=== PATIENT | female | born 1935 | race Caucasian/White ===

== ENCOUNTER 2016-10-29 17:13 | Emergency (ER) | payer MEDICARE ==
[2016-10-29 17:34] VITALS: BP 152/70
[2016-10-29] MEDS ORDERED: Ketorolac 60 MG/2 ML SDV IM ONE (17:46)
--- NOTE | 2016-10-29 17:54 | EDM.PDOC ---
ED UPPER BACK/NECK PAIN/INJURY - General Chief Complaint: Neck Problem Stated Complaint: NECK PAIN/RT EAR Time Seen by Provider: 10/29/16 17:19 Source of Information: Reports: Patient History Limitations: Reports: No limitations - History of Present Illness INITIAL COMMENTS - FREE TEXT/NARRATIVE: Presents reporting a three-day history of neck stiffness and pain with movement and in the range of motion particularly turning to the left. She states that the pain is worse at night and she has had some difficulty sleeping unless she gets in the proper position. She denies any known injury or fall. She has no other symptoms including fever, ear pain, throat pain, headache or visual symptoms. - Related Data Allergies/ADRs: Allergies Allergy/AdvReac Type Severity Reaction Status Date / Time No Known Allergies Allergy Verified 10/29/16 17:33 Home Meds: Home Meds Cyclobenzaprine [Flexeril] 5 mg PO TID PRN 7 Days 10/29/16 [Rx] Levothyroxine [Synthroid] 1 tab PO DAILY 10/29/16 [History] Past Medical History - Past Health History Medical/Surgical History: Denies Medical/Surgical History Endocrine/Metabolic History: Reports: Hypothyroidism - Infectious Disease History Infectious Disease History: Reports: Chicken pox, Measles, Mumps Social & Family History - Family History Family Medical History: Noncontributory - Tobacco Use Smoking Status *Q: Current Every Day Smoker Years of Tobacco use: 40 Packs/Tins Daily: 1 - Caffeine Use Caffeine Use: Reports: None - Recreational Drug Use Recreational Drug Use: No ED ROS GENERAL - Review of Systems Review Of Systems: ROS reveals no pertinent complaints other than HPI. ED EXAM, UPPER BACK/NECK PAIN - Physical Exam Exam: See Below Exam Limited By: No limitations General Appearance: alert, no apparent distress Ears Exam: normal external exam, normal TMs (TM occluded by cerumen Left) Nose Exam: normal inspection Throat/Mouth Exam: Normal inspection, Normal oropharynx Head Exam: atraumatic, normocephalic Neck Exam: non-tender, full range of motion (but limited by pain particularly to the left), normal alignment (holds head in erect position and moves entire body rather than her neck), normal inspection, painful range of motion, stiff neck. No: paraspinous muscle tender, spinous processes tender, tenderness, tender lateral, tender midline Cardiovascular/Respiratory: regular rate, rhythm, normal breath sounds, no respiratory distress GI/Abdominal: soft Extremities: normal inspection Neurologic: no motor/sensory deficits, alert, oriented x 3 Psychiatric: normal affect, normal mood Skin Exam: Normal color, Warm/dry, Other (no rash on the neck, back of head, upper back, shoulders, face) Lymphatic: no adenopathy Course - Vital Signs Last Recorded V/S: Last Vital Signs Temp 36.7 C 10/29/16 17:31 Pulse 80 10/29/16 17:31 Resp 18 10/29/16 17:31 BP 152/70 H 10/29/16 17:31 Pulse Ox 95 10/29/16 17:31 - Orders/Labs/Meds Orders: Active Orders 24 hr Category Date Time Status Ketorolac [Toradol] Med 10/29/16 17:46 Once 60 mg IM ONETIME ONE Departure - Departure Time of Disposition: 18:05 Disposition: Home, Self-Care 01 Condition: good Clinical Impression: Muscle spasm Forms: ED Department Discharge Additional Instructions: 1. Diclofenac every 8 hours as needed for pain 2. Flexeril (Cyclobenzaprine) every 8 hours as needed for muscle spasm 3. Warm packs to neck 20 minutes every 3-4 hours taking care to avoid araujo 4. Follow up in primary care 5. Return for fever, visual symptoms, rashes, ear pain. - My Orders Last 24 Hours: My Active Orders 10/29/16 17:46 Ketorolac [Toradol] 60 mg IM ONETIME ONE - Assessment/Plan Last 24 Hours: My Active Orders 10/29/16 17:46 Ketorolac [Toradol] 60 mg IM ONETIME ONE
[2016-10-29] MEDS ORDERED: Ketorolac 30 MG/ML SDV IM ONE (17:56)
== END 2016-10-29 18:38 | disposition home or self-care (01) ==
LOC: MW.ED 17:13
DX: M62.838 Other muscle spasm (principal); M54.2 Cervicalgia; E03.9 Hypothyroidism, unspecified; F17.210 Nicotine dependence, cigarettes, uncomplicated; Z79.899 Other long term (current) drug therapy
CPT/HCPCS: 96372; 99283; J1885

== ENCOUNTER 2019-10-25 13:59 | Emergency (ER) | payer MEDICARE ==
[2019-10-25 14:46] LABS: BLOOD UREA NITROGEN,BUN 11 mg/dL (7.0-18.0); CARBON DIOXIDE,CO2 28.6 mmol/L (21.0-32.0); CHLORIDE,CL 99 mmol/L (98-107); GLUCOSE RANDOM 110 mg/dL (74-106); POTASSIUM,K 3.8 mmol/L (3.5-5.1); SODIUM,NA 137 mmol/L (136-145)
--- NOTE | 2019-10-25 14:51 | CR ---
Chest: 2 views of the chest were obtained. Comparison: Prior chest x-ray of 08/13/13. Heart size is normal. Tortuous thoracic aorta is seen. Lungs are clear with no acute parenchymal change. Lungs are hyperinflated compatible with emphysematous change. Bony structures are osteopenic but appear to be intact. Impression: 1. Emphysematous change. 2. Nothing acute is identified on 2 view chest x-ray. Diagnostic code #2 This report was dictated in [place] Standard Time
[2019-10-25 15:30] VITALS: BP 139/62
[2019-10-25] MEDS ORDERED: Iopamidol 755 MG/ML 200 ML Multipack Bottle IVPUSH ONE (17:41)
--- NOTE | 2019-10-25 18:09 | CT ---
CT chest Technique: Multiple axial sections were obtained from above the lung apices inferiorly through the lung bases. Intravenous contrast was utilized. Study has been performed as a pulmonary angiogram protocol. Findings: Pulmonary arteries are well opacified. No filling defects are seen to indicate pulmonary embolism. Ectatic ascending aorta is noted. No pericardial thickening is seen. Coronary artery calcification is seen. Visualized upper abdominal structures show nothing acute. Emphysematous change is seen throughout both lungs. Mild areas of scarring are noted most prominent within both upper lungs. Bone window settings were reviewed. No acute osseous finding is appreciated. Impression: 1. No findings of pulmonary embolism. 2. Emphysematous change. 3. Nothing acute is appreciated on CT study of the chest. Diagnostic code #2 This report was dictated in [place] Standard Time
--- NOTE | 2019-10-25 18:27 | EDM.PDOC ---
ED [facility] GENERAL MEDICAL PROBLEM - General Chief Complaint: Chest Pain Stated Complaint: CHEST PAINS Time Seen by Provider: 10/25/19 14:01 - History of Present Illness INITIAL COMMENTS - FREE TEXT/NARRATIVE: HPI 84-year-old female former smoker with hypothyroidism presents for evaluation of poorly characterized left-sided chest pain that is been intermittent over 2 weeks. No identifiable provoking or relieving factors. No shortness breath. Pain does not seem to be worsened with ambulation. Triage note: Pt to ed with c/o having chest pain that is on and off for the past two weeks. M/S/F/SocHx notable for: please see HPI; remainder reviewed with patient and in chart. ROS: Negative constitutional, eye, cardiovascular, pulmonary, GI, , MSK, skin , neurologic, psychiatric, endocrine unless noted in the HPI. Exam HR 96, RR 18, BP one 4485, SaO2 95% on room air. Gen: Pleasant, non-toxic appearing, resting comfortably, thin and frail appearing. HEENT: NC, AT, PEERL, EOMI. Resp: Clear to auscultation bilaterally, normal work of breathing. Card: RRR with no M/R/G, no crackles in lung bases, no pedal edema, no JVD appreciated. GI: NT/ND Vascular: Both ankles, calves, and thighs of equal size, no calf tenderness to palpation bilaterally. MSK: No chest wall TTP. No visible deformities, strength and tone WNL. Skin: Normal color with no visible lesions. Neuro: AO x 3, no facial asymmetry, vision and hearing WNL. Psych: Mood and affect appropriate. Labs / Imaging (pertinent): WBC 4.77, Hb 17.4, Na 137, K 3.8, AST 15, ALT 14, total bilirubin 0.6, alkaline phosphatase 108. Troponin (2:16 PM) <0.050, troponin (4:30 PM) <0.050 d-dimer 0.66 EKG: SR at 69 bpm, no MO segment depressions, no new ST segment changes, new LBBB, or T-wave changes that would suggest acute ischemia. CXR: No acute cardiopulmonary disease process. CTA Chest: 1. No findings of pulmonary embolism. 2. Emphysematous change. 3. Nothing acute is appreciated on CT study of the chest. MDM Previous chart, nursing note, and vitals reviewed. A: 84-year-old female with hypothyroidism presents for evaluation of poorly characterized left-sided chest pain that is been intermittent over 2 weeks. DDx and Evaluation: * ACS - doubt ACS given a non-ischemic EKG and negative serial troponins. * UA - unlikely given the atypical history and alternate diagnosis. HEART score 3 (Hx - 0, EKG - 0, age - 2, risk factors - 1, troponin - 0; 30 day MACE: less than or equal to 1.7%). * Pericarditis - consider pericarditis unlikely given the lack of MO segment depressions as well as the absence of diffuse ST-segment elevations, lack of reduction of pain when supine, and lack of a friction rub. * Myocarditis - unlikely given the negative troponin and an EKG without characteristic MO-segment or ST-segment changes. * Dissection - no evidence by imaging.. * PE - no evidence by imaging. * Mediastinal Air - no evidence by imaging. * Pneumothorax - no evidence by imaging. * MSK - doubt given lack of reproducibility on exam. * Endocarditis - no identifiable risk factors, patient afebrile, no new murmurs appreciated on exam; doubt. * GI (Esophageal rupture, GERD) - esophageal rupture effectively excluded given the lack of mediastinal widening, non-toxic appearance, and lack of identifiable risk factors. While not definitively excluded, further evaluation of GERD is deferred to an outpatient setting. ED Course: Vital signs remained stable and within clinically acceptable limits. Disposition: Discharge with PCP follow up. Return to care precautions given verbally and in writing. Impression: Chest Pain. 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: Musculoskeletal History: Reports: None Neurological History: Reports: None Psychiatric History: Reports: None Endocrine/Metabolic History: Reports: Hypothyroidism Hematologic History: Reports: None Immunologic History: Reports: None Oncologic (Cancer) History: Reports: None Dermatologic History: Reports: None - Infectious Disease History Infectious Disease History: Reports: Chicken Pox, Mumps - Past Surgical History Head Surgeries/Procedures: Reports: None HEENT Surgical History: Reports: None Cardiovascular Surgical History: Reports: None Respiratory Surgical History: Reports: None GI Surgical History: Reports: None Female Surgical History: Reports: None Endocrine Surgical History: Reports: None Neurological Surgical History: Reports: None Musculoskeletal Surgical History: Reports: None Oncologic Surgical History: Reports: None Dermatological Surgical History: Reports: None Social & Family History - Family History Family Medical History: Noncontributory - Tobacco Use Smoking Status *Q: Current Every Day Smoker Years of Tobacco use: 20 Packs/Tins Daily: 0.7 - Caffeine Use Caffeine Use: Reports: Coffee - Recreational Drug Use Recreational Drug Use: No ED ROS GENERAL - Review of Systems Review Of Systems: See Below ED EXAM, GENERAL - Physical Exam Exam: See Below Course - Vital Signs Last Recorded V/S: Last Vital Signs Temp 36.4 C 10/25/19 18:01 Pulse 64 10/25/19 15:28 Resp 18 10/25/19 14:09 BP 139/62 10/25/19 15:28 Pulse Ox 95 10/25/19 15:28 - Orders/Labs/Meds Orders: Active Orders 24 hr Category Date Time Status Communication Order [RC] STAT Care 10/25/19 17:29 Active EKG 12 Lead [EKG Documentation Completion] [RC] STAT Care 10/25/19 14:08 Active Labs: Laboratory Tests 10/25/19 10/25/19 10/25/19 Range/Units 14:16 14:16 14:16 WBC 4.77 (4.0-11.0) K/uL RBC 5.41 (4.30-5.90) M/uL Hgb 17.4 H (12.0-16.0) g/dL Hct 53.5 H (36.0-46.0) % MCV 98.9 H (80.0-98.0) fL MCH 32.2 H (27.0-32.0) pg MCHC 32.5 (31.0-37.0) g/dL RDW Std Deviation 49.1 (28.0-62.0) fl RDW Coeff of Saulo 14 (11.0-15.0) % Plt Count 195 (150-400) K/uL MPV 9.10 (7.40-12.00) fL Add Manual Diff YES Neutrophils % (Manual) 54 (48.0-80.0) % Lymphocytes % (Manual) 37 (16.0-40.0) % Monocytes % (Manual) 7 (0.0-15.0) % Eosinophils % (Manual) 1 (0.0-7.0) % Basophils % (Manual) 1 (0.0-1.5) % Absolute Seg Neuts 2.6 (1.4-5.7) Lymphocytes # (Manual) 1.8 (0.6-2.4) Monocytes # (Manual) 0.3 (0.0-0.8) Eosinophils # (Manual) 0.0 (0.0-0.7) Basophils # (Manual) 0.0 (0.0-0.1) Reactive Lymphocytes FEW D-Dimer, Quantitative 0.66 H (0.0-0.50) mg/L FEU Sodium 137 (136-145) mmol/L Potassium 3.8 (3.5-5.1) mmol/L Chloride 99 (98-107) mmol/L Carbon Dioxide 28.6 (21.0-32.0) mmol/L BUN 11 (7.0-18.0) mg/dL Creatinine 0.9 (0.6-1.0) mg/dL Est Cr Clr Drug Dosing 32.49 mL/min Estimated GFR (MDRD) 59.8 ml/min Glucose 110 H (74-106) mg/dL Calcium 9.5 (8.5-10.1) mg/dL Total Bilirubin 0.6 (0.2-1.0) mg/dL AST 15 (15-37) IU/L ALT 14 (14-63) IU/L Alkaline Phosphatase 108 (46-116) U/L Troponin I < 0.050 (0.000-0.056) ng/mL Total Protein 7.8 (6.4-8.2) g/dL Albumin 3.9 (3.4-5.0) g/dL Globulin 3.9 (2.6-4.0) g/dL Albumin/Globulin Ratio 1.0 (0.9-1.6) 03/09/20 Range/Units 16:30 WBC (4.0-11.0) K/uL RBC (4.30-5.90) M/uL Hgb (12.0-16.0) g/dL Hct (36.0-46.0) % MCV (80.0-98.0) fL MCH (27.0-32.0) pg MCHC (31.0-37.0) g/dL RDW Std Deviation (28.0-62.0) fl RDW Coeff of Saulo (11.0-15.0) % Plt Count (150-400) K/uL MPV (7.40-12.00) fL Add Manual Diff Neutrophils % (Manual) (48.0-80.0) % Lymphocytes % (Manual) (16.0-40.0) % Monocytes % (Manual) (0.0-15.0) % Eosinophils % (Manual) (0.0-7.0) % Basophils % (Manual) (0.0-1.5) % Absolute Seg Neuts (1.4-5.7) Lymphocytes # (Manual) (0.6-2.4) Monocytes # (Manual) (0.0-0.8) Eosinophils # (Manual) (0.0-0.7) Basophils # (Manual) (0.0-0.1) Reactive Lymphocytes D-Dimer, Quantitative (0.0-0.50) mg/L FEU Sodium (136-145) mmol/L Potassium (3.5-5.1) mmol/L Chloride (98-107) mmol/L Carbon Dioxide (21.0-32.0) mmol/L BUN (7.0-18.0) mg/dL Creatinine (0.6-1.0) mg/dL Est Cr Clr Drug Dosing mL/min Estimated GFR (MDRD) ml/min Glucose (74-106) mg/dL Calcium (8.5-10.1) mg/dL Total Bilirubin (0.2-1.0) mg/dL AST (15-37) IU/L ALT (14-63) IU/L Alkaline Phosphatase (46-116) U/L Troponin I < 0.050 (0.000-0.056) ng/mL Total Protein (6.4-8.2) g/dL Albumin (3.4-5.0) g/dL Globulin (2.6-4.0) g/dL Albumin/Globulin Ratio (0.9-1.6) Meds: Medications Discontinued Medications Generic Name Dose Route Start Last Admin Trade Name Latisha PRN Reason Stop Dose Admin Iopamidol 50 ml 10/25/19 17:41 10/25/19 17:41 Isovue Multipack-370 (76%) IVPUSH 10/25/19 17:42 50 ml ONETIME ONE Administration Departure - Departure Time of Disposition: 18:27 Disposition: Home, Self-Care 01 Clinical Impression: Chest pain - Discharge Information Referrals: Pawel Sanchez MD [Primary Care Provider] - Additional Instructions: You were in seen in the [facility] Emergency Department for evaluation of chest pain. Please read and follow all of the instructions below. Please follow up with your primary care physician within 48 hours. When calling for follow-up care, please make the office aware that this follow-up is from your recent emergency room visit. If for any reason you are refused follow-up, please contact the [facility] Emergency Department at and asked to speak to the emergency department charge nurse. Your care today was limited to identifying and treating emergent medical problems only. Many people have subtle differences in their test results that require follow up with their outpatient physician(s) to correctly determine if this represents a normal variation or concerning abnormality with respect to your specific health. The care given to you today was limited to identifying and treating emergent medical problems - you need to request a copy of all of your medical records from today's visit and follow up with your outpatient physician(s) to review both today's visit and your overall health. If you have any new symptoms or if you are at all concerned about your health please return immediately to the emergency department. Prescriptions: If you are uninsured or have financial difficulties with filling your prescription(s), you may consider using a free pharmacy discount service such as [employer] ([place]) or [employer] ([employer] [place]). These services allow you to search for a medication on your phone (or computer) and obtain a coupon that usually has a significant discount from the list cha at a pharmacy. Your physician as well as [facility] does not have a financial relationship with either of these services. You may also wish to speak with your physician to determine if lower cost prescriptions are possible. Obtaining primary care: 1. [facility] provides pediatrics (children), family medicine (children, adults, and some obstetrical care), and internal medicine (adults). Further specialty care is also available. Same day appointments are available. They may be contacted at [phone] and are open Friday through Friday 8 AM to 5 PM. The [facility] are located at [facility], [address] [place] [address]. 2. [facility] offers family medicine, internal medicine, women health, and further specialty care. [facility] may be contacted at [phone]. [facility] is located at [address] [facility] [address]. 3. If you have health insurance, please also contact your insurer for a list of accepting providers under your policy, you may contact these providers for further health care. Occupational health: Work related injuries may consider following up with [facility], . Occupational health services are located at [address] [place] [address] and are open Friday through Friday from 7: 30 am to 5:00 pm. Obstetrical and Gynecological Care: [facility], , Friday through Friday 8 AM to 5 PM. [address] [place] [address]. Eyecare: If you have an eye injury you should follow up with your full charge bookkeeper or with [facility], at [phone] or [phone] , they are located at [address] [place] [address]. Dental Care Pancho Franco DDS. [address] [place], [place]. Ph. [phone] Pablito Franco DDS [place]. [address] Ph[address] Bradley Dos Santos DDS. 10 08/[address] [place] [address], [place], [place]. Ph. [phone] Sanju Varner DDS. [address] [facility] 4 [place]. Ph. [phone] Antonio Mane Maribel DDS PC. [address] [place], [place]. Ph. Toby Kelley DDS. [address] [facility]. Ph. [phone] [facility]. [address] [place], [place]. Ph. [phone] [facility]. [address], [place]. Ph. [phone] [facility] [address] [place] [address]. Ph. [phone] [facility]. [address] [place] [address] [address] [place]. Ph. [facility]. [address] [place], [place]. Ph. [phone] Chest Pain of Unclear Cause You have been seen for chest pain. The cause of your pain is not yet known. You should follow up with your primary care physician in the next day to discuss having a cardiac stress test within 48 hours of today. Your doctor has learned about your medical history, examined you, and checked any tests that were done. Still, it is unclear why you are having pain. The doctor thinks there is only a very small chance that your pain is caused by a life-threatening condition. Later, your primary care doctor might do more tests or check you again. Sometimes chest pain is caused by a dangerous condition, like a heart attack, aorta injury, blood clot in the lung, or collapsed lung. It is unlikely that your pain is caused by a life-threatening condition if: Your chest pain lasts only a few seconds at a time; you are not short of breath, nauseated (sick to your stomach), sweaty, or lightheaded; your pain gets worse when you twist or bend; your pain improves with exercise or hard work. Chest pain is serious. It is VERY IMPORTANT that you follow up with your regular doctor and seek medical attention immediately here or at the nearest Emergency Department if your symptoms become worse or they change. YOU SHOULD SEEK MEDICAL ATTENTION IMMEDIATELY, EITHER HERE OR AT THE NEAREST EMERGENCY DEPARTMENT, IF ANY OF THE FOLLOWING OCCURS: Your pain gets worse. Your pain makes you short of breath, nauseated, or sweaty. Your pain gets worse when you walk, go up stairs, or exert yourself. You feel weak, lightheaded, or faint. It hurts to breathe. Your leg swells. Your symptoms get worse or you have new symptoms or concerns. Sepsis Event Note - Evaluation Sepsis Screening Result: No Definite Risk - Focused Exam Vital Signs: Vital Signs Temp Pulse Resp BP Pulse Ox 10/25/19 18:01 36.4 C 10/25/19 15:28 64 139/62 95 10/25/19 14:09 2.2 C L 96 18 144/85 H 95 Date Exam was Performed: 10/25/19 Time Exam was Performed: 18:26 - My Orders Last 24 Hours: My Active Orders 10/25/19 14:08 EKG 12 Lead [EKG Documentation Completion] [RC] STAT 10/25/19 17:29 Communication Order [RC] STAT - Assessment/Plan Last 24 Hours: My Active Orders 10/25/19 14:08 EKG 12 Lead [EKG Documentation Completion] [RC] STAT 10/25/19 17:29 Communication Order [RC] STAT
[2019-10-25 20:15] VITALS: PULSE 79
== END 2019-10-25 18:52 | disposition home or self-care (01) ==
LOC: MW.ED 13:59
DX: R07.9 Chest pain, unspecified (principal); E03.9 Hypothyroidism, unspecified; Z79.899 Other long term (current) drug therapy; Z87.891 Personal history of nicotine dependence
CPT/HCPCS: 36415; 71046; 71275; 80053; 84484; 85025; 85379; 93005; 99285; Q9967; 99283

== ENCOUNTER 2020-10-06 20:42 | Emergency (ER) | payer MEDICARE ==
[2020-10-06 21:07] VITALS: PULSE 84
--- NOTE | 2020-10-06 22:23 | EDM.PDOC ---
ED HPI GENERAL MEDICAL PROBLEM - General Chief Complaint: Back Pain or Injury Stated Complaint: BACK PAIN Time Seen by Provider: 10/06/20 20:57 - History of Present Illness INITIAL COMMENTS - FREE TEXT/NARRATIVE: HISTORY AND PHYSICAL: History of present illness: This is an 85-year-old female who presents ER today for evaluation of a fall at home. Per patient's son, patient was upstairs when he heard a bang on the ground and synchronous ears and noticed that his mother was on the floor. Mother reports that she did not hit her head and did not have any loss of consciousness. She does complain of neck pain as well as pain to her lower back. Patient denies any other symptomatology. Patient denies any dizziness. Patient reports that she tripped and lost balance. History per the son obtained at 10:30 PM: Son reports that while he was in the basement he heard his mother falsely went upstairs and she was outside the bedroom door. He reports that she was able to stand up with his assistance and walk to the bed and he was able to pick her up and put her into the bed so she can get some rest. He reports while she was in bed she was having pain and discomfort so he called EMS and they transferred her here for evaluation. Review of systems: As per history of present illness and below otherwise all systems reviewed and negative. Past medical history: As per history of present illness and as reviewed below otherwise noncontributory. Surgical history: As per history of present illness and as reviewed below otherwise noncontributory. Social history: No reported history of drug or alcohol abuse. Family history: As per history of present illness and as reviewed below otherwise noncontributory. Physical exam: Constitutional: Patient is oriented to person, place, and time. Appears well- developed and well-nourished. No distress. HEENT: Moist mucous membranes Head: Normocephalic and atraumatic Eyes: Right eye exhibits no discharge. Left eye exhibits no discharge. No scleral icterus Neck: Normal range of motion. No tracheal deviation present. Cardiovascular: Normal rate and regular rhythm. Pulmonary: Effort normal, no respiratory distress. Abdominal: No distention Musculoskeletal: Normal range of motion Neurologic: Alert and oriented to person, place and time. Skin: [place], warm and dry. Psychiatric: Normal mood and affect. Behavior is normal. Judgment and thought content normal. Nursing note and vital signs have been reviewed This patient was seen and evaluated during the 2019 SARS-CoV-2 novel coronavirus pandemic period. Community viral transmission is ongoing at time of this encounter and the emergency department is operating under pandemic response procedures. Patient's ER physical exam is significant for old ecchymosis to her right forehead. According to the son the patient did fall yesterday and there is no record here in the ER of an evaluation. Patient does have tenderness to palpation to her lumbar spine at approximately L3-L4 region. Patient has no C- spine T-spine or L-spine tenderness to palpation. Patient has no left upper or right upper quadrant tenderness to palpation. Patient has no crepitus to palpation to the anterior chest wall. Patient is neurologically intact. Patient does not present with any signs or or symptoms that would be consistent with acute intracranial, intra-abdominal, intrathoracic, or long bone injury. All long bones have been palpated and range of motion been performed and there is no evidence of any acute pathology. Patient with a 3 cm skin tear over the dorsal aspect of her left hand. Diagnostics: CT C-spine: No acute fracture or dislocation CT head: No acute fracture or intracranial hemorrhage, CT L-spine: Acute L2 superior endplate fracture with minimal height loss. Therapeutics: Dermabond applied to 3 cm skin tear over her left hand. Ultram 50 p.o. x1 Toradol 15 mg IM x1 Assessment and plan: 85-year-old female who presents ER today for evaluation of a fall with neck and lower back pain. Patient will get a CT scan of her C-spine head and lumbar spine. CT head and C-spine are negative. Patient does appear to have a compression fracture of L2 that appears to be acute. I have discussed the options with the patient and her son and at this time they do not wish for admission to the hospital. The son reports that he feels that he can care for her at home with her pain and assistance with her ADLs. We will discharge patient home with tramadol for pain and to continue taking her Tylenol and Advil that she has at home. Patient will follow up with her primary care physician early next week for reevaluation of pain management and for further management of her L2 fracture. Reassessment at the time of disposition demonstrates that the patient is in no acute distress. The patient has remained stable throughout the entire ED visit and is without objective evidence for acute process requiring urgent intervention or hospitalization. The patient is stable for discharge, counseling is provided as documented above, discussed symptomatic treatment and specific conditions for return. I have spoken with the patient/caregiver and discussed todays findings, in addition to providing specific details for the plan of care. Questions are answered and there is agreement with the plan. Definitive disposition and diagnosis as appropriate pending reevaluation and review of above. posterior neck Pain Score (Numeric/FACES): 8 L abdomen Pain Score (Numeric/FACES): 8 lower back Pain Score (Numeric/FACES): 8 - Related Data Allergies Allergy/AdvReac Type Severity Reaction Status Date / Time No Known Allergies Allergy Verified 10/06/20 20:56 Home Meds: Home Meds Levothyroxine [Synthroid] 1 tab PO DAILY 10/29/16 [History] traMADol [Ultram] 50 mg PO Q6H PRN #20 tab 10/06/20 [Rx] Past Medical History - Past Health History Medical/Surgical History: Denies Medical/Surgical History HEENT History: Reports: Impaired Vision Cardiovascular History: Reports: None Respiratory History: Reports: None Gastrointestinal History: Reports: None Genitourinary History: Reports: None 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: Musculoskeletal History: Reports: None Neurological History: Reports: None Psychiatric History: Reports: None Endocrine/Metabolic History: Reports: Hypothyroidism Hematologic History: Reports: None Immunologic History: Reports: None Oncologic (Cancer) History: Reports: None Dermatologic History: Reports: None - Infectious Disease History Infectious Disease History: Reports: Chicken Pox, Mumps - Past Surgical History Head Surgeries/Procedures: Reports: None HEENT Surgical History: Reports: None Cardiovascular Surgical History: Reports: None Respiratory Surgical History: Reports: None GI Surgical History: Reports: None Female Surgical History: Reports: None Endocrine Surgical History: Reports: None Neurological Surgical History: Reports: None Musculoskeletal Surgical History: Reports: None Oncologic Surgical History: Reports: None Dermatological Surgical History: Reports: None Social & Family History - Family History Family Medical History: No Pertinent Family History - Caffeine Use Caffeine Use: Reports: Coffee - Recreational Drug Use Recreational Drug Use: No ED ROS GENERAL - Review of Systems Review Of Systems: See Below ED EXAM, GENERAL - Physical Exam Exam: See Below Course - Vital Signs Last Recorded V/S: Last Vital Signs Temp 99.8 F 10/06/20 20:56 Pulse 84 10/06/20 20:56 Resp 16 10/06/20 20:56 BP 122/86 10/06/20 20:56 Pulse Ox 89 L 10/06/20 20:56 - Orders/Labs/Meds Meds: Medications Discontinued Medications Generic Name Dose Route Start Last Admin Trade Name Latisha PRN Reason Stop Dose Admin Ketorolac Tromethamine 15 mg 10/06/20 22:46 Toradol IM 10/06/20 22:47 ONETIME ONE Octyl Cyanoacrylate Confirm 10/06/20 22:43 Dermabond Advance Administered 10/06/20 22:44 Dose 1 applic .ROUTE .STK-MED ONE Tramadol HCl 50 mg 10/06/20 22:45 Ultram PO 10/06/20 22:46 ONETIME ONE Departure - Departure Time of Disposition: 22:50 Disposition: Home, Self-Care 01 Condition: Good Clinical Impression: Fall in elderly patient, Skin tear of left hand without complication Head injury Qualifiers: Encounter type: initial encounter Qualified Code(s): S09.90XA - Unspecified injury of head, initial encounter Fracture of second lumbar vertebra Qualifiers: Encounter type: initial encounter Fracture type: closed - Discharge Information Instructions: Fall Prevention in the Home, Adult, [id number], Head Injury, Adult, [id number], Lumbar Spine Fracture, Laceration Care, Adult, [id number] Referrals: PCP,None [Primary Care Provider] - Forms: ED Department Discharge Additional Instructions: You were seen and evaluated in the ER today secondary to a fall. The CT scan of your head and cervical spine did not reveal any acute pathology. There does appear to be a fracture of your lumbar spine #2 that is likely secondary to the fall. You will be given a prescription for Ultram to assist with your pain. Please continue taking the Tylenol and the ibuprofen or Advil or Naprosyn that you have at home. Please make an appointment to see her family doctor early next week so that he can assist her with long-term management of her pain. Please return to the ER if you find that you are not able to manage her mother at home and appropriate take care of her activities of daily living. The following information is given to patients seen in the emergency department who are being discharged to home. This information is to outline your options for follow-up care. We provide all patients seen in our emergency department with a follow-up referral. The need for follow-up, as well as the timing and circumstances, are variable depending upon the specifics of your emergency department visit. If you don't have a primary care physician on staff, we will provide you with a referral. We always advise you to contact your personal physician following an emergency department visit to inform them of the circumstance of the visit and for follow-up with them and/or the need for any referrals to a consulting specialist. The emergency department will also refer you to a specialist when appropriate. This referral assures that you have the opportunity for follow-up care with a specialist. All of these measure are taken in an effort to provide you with optimal care, which includes your follow-up. Under all circumstances we always encourage you to contact your private physician who remains a resource for coordinating your care. When calling for follow-up care, please make the office aware that this follow-up is from your recent emergency room visit. If for any reason you are refused follow-up, please contact the [facility] Emergency Department at and asked to speak to the emergency department charge nurse. [facility] [address] [place] [address] [address] Sepsis Event Note (ED) - Evaluation Sepsis Screening Result: No Definite Risk - Focused Exam Vital Signs: Vital Signs Temp Pulse Resp BP Pulse Ox 10/06/20 20:56 99.8 F 84 16 122/86 89 L
--- NOTE | 2020-10-06 22:25 | CT ---
INDICATION: Fall with head pain TECHNIQUE: Head CT without contrast. COMPARISON: None FINDINGS: CSF spaces: Within normal limits for age. Brain parenchyma: There are nonspecific low attenuation white matter changes consistent with chronic microvascular disease. No sign of mass, hemorrhage, or midline shift. Skull base and calvarium: The visualized paranasal sinuses and mastoid air cells demonstrate no acute or significant findings. The visualized orbits are grossly unremarkable. No skull fractures. There is intracranial atherosclerosis. Small right frontal scalp contusion. IMPRESSION: 1. No acute hemorrhage or skull fracture. Small right frontal scalp contusion. 2. Nonspecific white matter disease, typical of chronic microvascular disease. Please note that all CT scans at this facility use dose modulation, iterative reconstruction, and/or weight-based dosing when appropriate to reduce radiation dose to as low as reasonably achievable. Dictated by Lisa Souza MD @ Oct 06 2020 10:15PM Signed by Dr. Lisa Souza @ Oct 06 2020 10:23PM
--- NOTE | 2020-10-06 22:27 | CT ---
INDICATION: Fall with neck pain TECHNIQUE: CT cervical spine without contrast. COMPARISON: None FINDINGS: Vertebral alignment: Alignment is normal. Vertebrae: There are no fractures or suspicious bony lesions. Discs and facet joints: There are moderate multilevel degenerative disc and facet changes. Extraspinal findings: Emphysema. IMPRESSION: 1. No sign of acute injury. 2. Multilevel degenerative spondylosis. 3. Emphysema. Please note that all CT scans at this facility use dose modulation, iterative reconstruction, and/or weight-based dosing when appropriate to reduce radiation dose to as low as reasonably achievable. Dictated by Lisa Souza MD @ Oct 06 2020 10:26PM Signed by Dr. Lisa Souza @ Oct 06 2020 10:26PM
--- NOTE | 2020-10-06 22:32 | CT ---
INDICATION: Fall with low back pain TECHNIQUE: CT lumbar spine without contrast. 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 Vertebrae: Osteopenia. Acute L2 superior endplate fracture with minimal height loss. Discs and facet joints: Mild multilevel degenerative disc and facet changes. Extraspinal findings: Severe atrophy of the left kidney. IMPRESSION: Acute L2 superior endplate fracture with minimal height loss. Severe atrophy of the left kidney. Please note that all CT scans at this facility use dose modulation, iterative reconstruction, and/or weight-based dosing when appropriate to reduce radiation dose to as low as reasonably achievable. Dictated by Lisa Souza MD @ Oct 06 2020 10:31PM Signed by Dr. Lisa Souza @ Oct 06 2020 10:31PM
[2020-10-06] MEDS ORDERED: Octyl 2-Cyanoacrylate 1 Tube ONE ×2 (22:43→23:23)
[2020-10-06] MEDS ORDERED: traMADol 50 MG Tab PO ONE (22:45)
[2020-10-06] MEDS ORDERED: Ketorolac 15 MG/ML SDV IM ONE (22:46)
[2020-10-06] MEDS ORDERED: Octyl 2-Cyanoacrylate 1 Tube TOP ONE (23:00)
[2020-10-06 23:25] VITALS: BP 146/82
== END 2020-10-06 23:25 | disposition home or self-care (01) ==
LOC: MW.ED 20:42
DX: S32.029A Unspecified fracture of second lumbar vertebra, initial encounter for closed fracture (principal); S61.412A Laceration without foreign body of left hand, initial encounter; S09.90XA Unspecified injury of head, initial encounter; E03.9 Hypothyroidism, unspecified; Z79.899 Other long term (current) drug therapy; W10.9XXA Fall (on) (from) unspecified stairs and steps, initial encounter; Y92.009 Unspecified place in unspecified non-institutional (private) residence as the place of occurrence of the external cause
CPT/HCPCS: 12002; 70450; 72125; 72131; 96372; 99284; A9270; J1885; 99283

== ENCOUNTER 2020-10-10 13:54 | Inpatient (IN) | payer MEDICARE, OTHER ==
--- NOTE | 2020-10-10 14:41 | EDM.PDOC ---
ED HPI GENERAL MEDICAL PROBLEM - General Chief Complaint: Genitourinary Problem Stated Complaint: FOLLOW UP WITH INJURY Time Seen by Provider: 10/10/20 13:59 Source of Information: Reports: Patient History Limitations: Reports: No Limitations - History of Present Illness INITIAL COMMENTS - FREE TEXT/NARRATIVE: 5-year-old female presents today follow-up mental status. Patient was seen recently and she took a fall and had a lumbar sacral fracture. Patient granddaughter came to town states patient been more confused not knowing when she is making weird statements. Patient also has some smile smelling urine as well as she is not walking or taking care of herself at home. Patient is up no other falls no injuries. generalized Pain Score (Numeric/FACES): 4 - Related Data Allergies Allergy/AdvReac Type Severity Reaction Status Date / Time No Known Allergies Allergy Verified 10/10/20 14:29 Home Meds: Home Meds Levothyroxine [Synthroid] 1 tab PO DAILY 10/29/16 [History] traMADol [Ultram] 50 mg PO Q6H PRN #20 tab 10/06/20 [Rx] Past Medical History - Past Health History Medical/Surgical History: Denies Medical/Surgical History HEENT History: Reports: Impaired Vision Cardiovascular History: Reports: None Respiratory History: Reports: None Gastrointestinal History: Reports: None Genitourinary History: Reports: None 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: Musculoskeletal History: Reports: None Neurological History: Reports: None Psychiatric History: Reports: None Endocrine/Metabolic History: Reports: Hypothyroidism Hematologic History: Reports: None Immunologic History: Reports: None Oncologic (Cancer) History: Reports: None Dermatologic History: Reports: None - Infectious Disease History Infectious Disease History: Reports: Chicken Pox, Mumps - Past Surgical History Head Surgeries/Procedures: Reports: None HEENT Surgical History: Reports: None Cardiovascular Surgical History: Reports: None Respiratory Surgical History: Reports: None GI Surgical History: Reports: None Female Surgical History: Reports: None Endocrine Surgical History: Reports: None Neurological Surgical History: Reports: None Musculoskeletal Surgical History: Reports: None Oncologic Surgical History: Reports: None Dermatological Surgical History: Reports: None Social & Family History - Family History Family Medical History: No Pertinent Family History - Caffeine Use Caffeine Use: Reports: Coffee - Recreational Drug Use Recreational Drug Use: No ED ROS GENERAL - Review of Systems Review Of Systems: Unable To Obtain Reason Not Obtained: AMS - Physical Exam Exam: See Below Exam Limited By: Altered Mental Status General Appearance: Alert, No Apparent Distress Eye Exam: Bilateral Eye: EOMI, PERRL Head Exam: Facial Abrasions Neck: Normal Inspection, Non-Tender Respiratory/Chest: No Respiratory Distress, Lungs Clear Cardiovascular: Normal Peripheral Pulses, Regular Rate, Rhythm GI/Abdominal: Normal Bowel Sounds, Soft, Non-Tender Neuro Exam (Abbreviated): Alert (a & ox2) Extremities: Normal Inspection, Normal Range of Motion Course - Vital Signs Last Recorded V/S: Last Vital Signs Temp 97.2 F 10/10/20 14:25 Pulse 82 10/10/20 14:25 Resp 16 10/10/20 14:25 BP 137/74 10/10/20 14:25 Pulse Ox 92 L 10/10/20 14:25 - Orders/Labs/Meds Orders: Active Orders 24 hr Category Date Time Status Patient Status [ADT] Routine ADT 10/10/20 16:56 Ordered T4 FREE [CHEM] Stat Lab 10/10/20 15:02 Received Labs: Laboratory Tests 10/10/20 10/10/20 10/10/20 Range/Units 15:02 15:02 15:59 WBC 5.29 (4.0-11.0) K/uL RBC 4.85 (4.30-5.90) M/uL Hgb 17.1 H (12.0-16.0) g/dL Hct 50.9 H (36.0-46.0) % MCV 104.9 H (80.0-98.0) fL MCH 35.3 H (27.0-32.0) pg MCHC 33.6 (31.0-37.0) g/dL RDW Std Deviation 57.0 (28.0-62.0) fl RDW Coeff of Saulo 15 (11.0-15.0) % Plt Count 179 (150-400) K/uL MPV 9.70 (7.40-12.00) fL Neut % (Auto) 73.9 (48.0-80.0) % Lymph % (Auto) 13.0 L (16.0-40.0) % Garrett % (Auto) 12.7 (0.0-15.0) % Eos % (Auto) 0.2 (0.0-7.0) % Baso % (Auto) 0.2 (0.0-1.5) % Neut # (Auto) 3.9 (1.4-5.7) K/uL Lymph # (Auto) 0.7 (0.6-2.4) K/uL Garrett # (Auto) 0.7 (0.0-0.8) K/uL Eos # (Auto) 0.0 (0.0-0.7) K/uL Baso # (Auto) 0.0 (0.0-0.1) K/uL Nucleated RBC % 0.0 /100WBC Nucleated RBCs # 0 K/uL Sodium 135 L (136-145) mmol/L Potassium 3.9 (3.5-5.1) mmol/L Chloride 97 L (98-107) mmol/L Carbon Dioxide 27.4 (21.0-32.0) mmol/L BUN 29 H (7.0-18.0) mg/dL Creatinine 0.9 (0.6-1.0) mg/dL Est Cr Clr Drug Dosing TNP Estimated GFR (MDRD) 59.7 ml/min Glucose 110 H (74-106) mg/dL Calcium 9.1 (8.5-10.1) mg/dL Phosphorus 2.8 (2.6-4.7) mg/dL Magnesium 2.4 (1.8-2.4) mg/dL Total Bilirubin 0.8 (0.2-1.0) mg/dL AST 17 (15-37) IU/L ALT 17 (14-63) IU/L Alkaline Phosphatase 75 (46-116) U/L Total Protein 7.4 (6.4-8.2) g/dL Albumin 3.5 (3.4-5.0) g/dL Globulin 3.9 (2.6-4.0) g/dL Albumin/Globulin Ratio 0.9 (0.9-1.6) Lipase 67 L (73-393) U/L Urine Color DARK YELLOW Urine Appearance HAZY Urine pH 6.0 (5.0-8.0) Ur Specific Birdseye >= 1.030 (1.001-1.035) Urine Protein TRACE H (NEGATIVE) mg/dL Urine Glucose (UA) NEGATIVE (NEGATIVE) mg/dL Urine Ketones 15 H (NEGATIVE) mg/dL Urine Occult Blood TRACE-INTACT H (NEGATIVE) Urine Nitrite NEGATIVE (NEGATIVE) Urine Bilirubin MODERATE H (NEGATIVE) Urine Ictotest NEGATIVE Urine Urobilinogen 0.2 (<2.0) EU/dL Ur Leukocyte Esterase NEGATIVE (NEGATIVE) Urine RBC 1-4 (0-2/HPF) Urine WBC 0-3 (0-5/HPF) Ur Epithelial Cells MANY (NONE-FEW) Urine Bacteria 1+ H (NEGATIVE) Influenza Type A RNA (NEGATIVE) Influenza Type B RNA (NEGATIVE) SARS-CoV-2 RNA (BRITTANY) (NEGATIVE) 10/10/20 Range/Units 16:00 WBC (4.0-11.0) K/uL RBC (4.30-5.90) M/uL Hgb (12.0-16.0) g/dL Hct (36.0-46.0) % MCV (80.0-98.0) fL MCH (27.0-32.0) pg MCHC (31.0-37.0) g/dL RDW Std Deviation (28.0-62.0) fl RDW Coeff of Saulo (11.0-15.0) % Plt Count (150-400) K/uL MPV (7.40-12.00) fL Neut % (Auto) (48.0-80.0) % Lymph % (Auto) (16.0-40.0) % Garrett % (Auto) (0.0-15.0) % Eos % (Auto) (0.0-7.0) % Baso % (Auto) (0.0-1.5) % Neut # (Auto) (1.4-5.7) K/uL Lymph # (Auto) (0.6-2.4) K/uL Garrett # (Auto) (0.0-0.8) K/uL Eos # (Auto) (0.0-0.7) K/uL Baso # (Auto) (0.0-0.1) K/uL Nucleated RBC % /100WBC Nucleated RBCs # K/uL Sodium (136-145) mmol/L Potassium (3.5-5.1) mmol/L Chloride (98-107) mmol/L Carbon Dioxide (21.0-32.0) mmol/L BUN (7.0-18.0) mg/dL Creatinine (0.6-1.0) mg/dL Est Cr Clr Drug Dosing Estimated GFR (MDRD) ml/min Glucose (74-106) mg/dL Calcium (8.5-10.1) mg/dL Phosphorus (2.6-4.7) mg/dL Magnesium (1.8-2.4) mg/dL Total Bilirubin (0.2-1.0) mg/dL AST (15-37) IU/L ALT (14-63) IU/L Alkaline Phosphatase (46-116) U/L Total Protein (6.4-8.2) g/dL Albumin (3.4-5.0) g/dL Globulin (2.6-4.0) g/dL Albumin/Globulin Ratio (0.9-1.6) Lipase (73-393) U/L Urine Color Urine Appearance Urine pH (5.0-8.0) Ur Specific Birdseye (1.001-1.035) Urine Protein (NEGATIVE) mg/dL Urine Glucose (UA) (NEGATIVE) mg/dL Urine Ketones (NEGATIVE) mg/dL Urine Occult Blood (NEGATIVE) Urine Nitrite (NEGATIVE) Urine Bilirubin (NEGATIVE) Urine Ictotest Urine Urobilinogen (<2.0) EU/dL Ur Leukocyte Esterase (NEGATIVE) Urine RBC (0-2/HPF) Urine WBC (0-5/HPF) Ur Epithelial Cells (NONE-FEW) Urine Bacteria (NEGATIVE) Influenza Type A RNA NEGATIVE (NEGATIVE) Influenza Type B RNA NEGATIVE (NEGATIVE) SARS-CoV-2 RNA (BRITTANY) NEGATIVE (NEGATIVE) - Re-Assessments/Exams Free Text/Narrative Re-Assessment/Exam: 10/10/20 16:[address] head reviewed UA does not show an infection patient will be admitted for altered mental status and likely placement. Departure - Departure Time of Disposition: 16:57 Disposition: Admitted As Inpatient 66 Condition: Good Clinical Impression: AMS (altered mental status) - Discharge Information *PRESCRIPTION DRUG MONITORING PROGRAM REVIEWED*: Not Applicable *COPY OF PRESCRIPTION DRUG MONITORING REPORT IN PATIENT NELY: Not Applicable Referrals: Pawel Sanchez MD [Primary Care Provider] - Forms: ED Department Discharge Sepsis Event Note (ED) - Evaluation Sepsis Screening Result: No Definite Risk - Focused Exam Vital Signs: Vital Signs Temp Pulse Resp BP Pulse Ox 10/10/20 14:25 97.2 F 82 16 137/74 92 L - My Orders Last 24 Hours: My Active Orders 10/10/20 15:02 T4 FREE [CHEM] Stat 10/10/20 16:56 Patient Status [ADT] Routine - Assessment/Plan Last 24 Hours: My Active Orders 10/10/20 15:02 T4 FREE [CHEM] Stat 10/10/20 16:56 Patient Status [ADT] Routine Plan: Is a 85-year-old female who presents today for altered mental status. Patient had a recent fall that showed a lumbar sacral fracture. Patient today is having some foul-smelling urine and now not acting like herself per her granddaughter will get UA labs and repeat CT scan head and reassess.
[2020-10-10 15:49] LABS: BLOOD UREA NITROGEN,BUN 29 mg/dL (7.0-18.0); CARBON DIOXIDE,CO2 27.4 mmol/L (21.0-32.0); CHLORIDE,CL 97 mmol/L (98-107); GLUCOSE RANDOM 110 mg/dL (74-106); LIPASE 67 U/L (73-393); POTASSIUM,K 3.9 mmol/L (3.5-5.1); SODIUM,NA 135 mmol/L (136-145)
--- NOTE | 2020-10-10 16:18 | CT ---
Indication: Altered mental status post fall Technique: Volumetric multidetector CT images of the head were obtained without the administration of low osmolar intravenous contrast. Comparison: CT head October 06, 2020 Findings: There is no intra-axial or extra-axial fluid collection. There is no mass effect or midline shift. There is age-related cortical atrophy with moderate sulcal widening and moderate ex vacuo dilatation of the lateral ventricles. There are chronic small vessel disease changes in the subcortical and periventricular white matter without lost najera-white differentiation. The orbits and their contents are grossly within normal limits. The bony calvarium is grossly intact. The paranasal sinuses are clear. The mastoid air cells are well aerated. Impression: 1. Age-related changes of the brain without acute intracranial abnormality. Please note that all CT scans at this facility use dose modulation, iterative reconstruction, and/or weight-based dosing when appropriate to reduce radiation dose to as low as reasonably achievable. Dictated by Edvin Ochoa MD @ Oct 10 2020 4:13PM Signed by Dr. Edvin Ochoa @ Oct 10 2020 4:16PM
[2020-10-10 16:49] LABS: CORONAVIRUS COVID-19 NAA NEGATIVE (NEGATIVE); INFLUENZA A NAA NEGATIVE (NEGATIVE); INFLUENZA B NAA NEGATIVE (NEGATIVE)
[2020-10-10] MEDS ORDERED: Ondansetron 4 MG/2 ML SDV IVPUSH PRN (17:54)
--- NOTE | 2020-10-10 17:58 | PCM.HP.2 ---
<Lanre Gatica M - Last Filed: 10/10/20 19:47> H&P History of Present Illness - General Date of Service: 10/10/20 Admit Problem/Dx: Admission Diagnosis/Problem Admission Diagnosis/Problem Altered mental status Source of Information: Family, Other (Granddaughter) - History of Present Illness Initial Comments - Free Text/Narative: 85-year-old female accompanied by her granddaughter presents with altered mental status. She has a past medical history of hypothyroidism. She was seen in the ER on 10/06/2020 after sustaining a mechanical fall at home after tripping on a rug. CT scan showed acute fracture of L2. Patient was discharged home on tramadol. Granddaughter reports that she was visiting her grandmother over the weekend and noted that she seemed more confused than normal. She was also noted to be making weird statements seem to be hallucinating on occasion. She has also had difficulty walking. At baseline, she does not use any assisted devices when walking. Granddaughter also notes that patient has had foul-smelling darker colored urine lately and has had decreased appetite. At her baseline, patient is AOx3. Granddaughter does report that over the past couple of months patient may have had mild cognitive decline and memory impairment, however, has noticed a more significant decline over the past 2 days. Patient lives with her son at home here in [place]. She has not had any fevers, chills, sore throat, cough, shortness of breath, chest pain, nausea, vomiting, abdominal pain, diarrhea, blood in stool or blood in urine. In the ER, CT head was unremarkable, hemoglobin 17.1, TSH 0.26, UA did not show any infection. Patient was admitted for further evaluation and treatment. generalized Pain Score (Numeric/FACES): 4 - Related Data Allergies/Adverse Reactions: Allergies Allergy/AdvReac Type Severity Reaction Status Date / Time No Known Allergies Allergy Verified 10/10/20 14:29 Home Medications: Home Meds Levothyroxine [Synthroid] 1 tab PO DAILY 10/29/16 [History] traMADol [Ultram] 50 mg PO Q6H PRN #20 tab 10/06/20 [Rx] Past Medical History - Past Health History Medical/Surgical History: Denies Medical/Surgical History HEENT History: Reports: Impaired Vision Cardiovascular History: Reports: None Respiratory History: Reports: None Gastrointestinal History: Reports: None Genitourinary History: Reports: None [employer] History: Reports: Musculoskeletal History: Reports: None Neurological History: Reports: None Psychiatric History: Reports: None Endocrine/Metabolic History: Reports: Hypothyroidism Hematologic History: Reports: None Immunologic History: Reports: None Oncologic (Cancer) History: Reports: None Dermatologic History: Reports: None - Infectious Disease History Infectious Disease History: Reports: Chicken Pox, Mumps - Past Surgical History Head Surgeries/Procedures: Reports: None HEENT Surgical History: Reports: None Cardiovascular Surgical History: Reports: None Respiratory Surgical History: Reports: None GI Surgical History: Reports: None Female Surgical History: Reports: None Endocrine Surgical History: Reports: None Neurological Surgical History: Reports: None Musculoskeletal Surgical History: Reports: None Oncologic Surgical History: Reports: None Dermatological Surgical History: Reports: None Social & Family History - Family History Family Medical History: No Pertinent Family History - Caffeine Use Caffeine Use: Reports: Coffee - Recreational Drug Use Recreational Drug Use: No H&P Review of Systems - Review of Systems: Review Of Systems: Comprehensive ROS is negative, except as noted in HPI. Exam - Exam Exam: See Below - Vital Signs Vital Signs: Last Vital Signs Temp 36.2 C 10/10/20 14:25 Pulse 82 10/10/20 14:25 Resp 16 10/10/20 14:25 BP 137/74 10/10/20 14:25 Pulse Ox 92 L 10/10/20 14:25 - Exam General: Alert, Other (Restless). No: Oriented HEENT: Conjunctiva Clear, EOMI, Hearing Intact, Pupils Equal, Pupils Reactive Neck: Supple, Trachea Midline Lungs: Clear to Auscultation, Normal Respiratory Effort Cardiovascular: Regular Rate, Regular Rhythm GI/Abdominal Exam: Normal Bowel Sounds, Soft, Non-Tender, No Distention Extremities: Normal Inspection, No Pedal Edema Peripheral Pulses: 2+: Radial (L), Radial (R) Skin: Other (Ecchymosis over right side of forehead) Neurological: Cranial Nerves Intact, Strength Equal Bilateral, Normal Speech, Normal Tone Neuro Extensive - Mental Status: Alert, Oriented x3, Normal Mood/Affect - Patient Data Lab Results Last 24 hrs: Laboratory Results - last 24 hr 10/10/20 10/10/20 10/10/20 Range/Units 15:02 15:02 15:02 WBC 5.29 (4.0-11.0) K/uL RBC 4.85 (4.30-5.90) M/uL Hgb 17.1 H (12.0-16.0) g/dL Hct 50.9 H (36.0-46.0) % MCV 104.9 H (80.0-98.0) fL MCH 35.3 H (27.0-32.0) pg MCHC 33.6 (31.0-37.0) g/dL RDW Std Deviation 57.0 (28.0-62.0) fl RDW Coeff of Saulo 15 (11.0-15.0) % Plt Count 179 (150-400) K/uL MPV 9.70 (7.40-12.00) fL Neut % (Auto) 73.9 (48.0-80.0) % Lymph % (Auto) 13.0 L (16.0-40.0) % [place] % (Auto) 12.7 (0.0-15.0) % Eos % (Auto) 0.2 (0.0-7.0) % Baso % (Auto) 0.2 (0.0-1.5) % Neut # (Auto) 3.9 (1.4-5.7) K/uL Lymph # (Auto) 0.7 (0.6-2.4) K/uL [place] # (Auto) 0.7 (0.0-0.8) K/uL Eos # (Auto) 0.0 (0.0-0.7) K/uL Baso # (Auto) 0.0 (0.0-0.1) K/uL Nucleated RBC % 0.0 /100WBC Nucleated RBCs # 0 K/uL Sodium 135 L (136-145) mmol/L Potassium 3.9 (3.5-5.1) mmol/L Chloride 97 L (98-107) mmol/L Carbon Dioxide 27.4 (21.0-32.0) mmol/L BUN 29 H (7.0-18.0) mg/dL Creatinine 0.9 (0.6-1.0) mg/dL Est Cr Clr Drug Dosing TNP Estimated GFR (MDRD) 59.7 ml/min Glucose 110 H (74-106) mg/dL Calcium 9.1 (8.5-10.1) mg/dL Phosphorus 2.8 (2.6-4.7) mg/dL Magnesium 2.4 (1.8-2.4) mg/dL Total Bilirubin 0.8 (0.2-1.0) mg/dL AST 17 (15-37) IU/L ALT 17 (14-63) IU/L Alkaline Phosphatase 75 (46-116) U/L Total Protein 7.4 (6.4-8.2) g/dL Albumin 3.5 (3.4-5.0) g/dL Globulin 3.9 (2.6-4.0) g/dL Albumin/Globulin Ratio 0.9 (0.9-1.6) Lipase 67 L (73-393) U/L Free T4 1.48 H (0.76-1.46) ng/dL TSH 3rd Generation (0.36-3.74) uIU/mL Urine Color Urine Appearance Urine pH (5.0-8.0) Ur Specific [place] (1.001-1.035) Urine Protein (NEGATIVE) mg/dL Urine Glucose (UA) (NEGATIVE) mg/dL Urine Ketones (NEGATIVE) mg/dL Urine Occult Blood (NEGATIVE) Urine Nitrite (NEGATIVE) Urine Bilirubin (NEGATIVE) Urine Ictotest Urine Urobilinogen (<2.0) EU/dL Ur Leukocyte Esterase (NEGATIVE) Urine RBC (0-2/HPF) Urine WBC (0-5/HPF) Ur Epithelial Cells (NONE-FEW) Urine Bacteria (NEGATIVE) Influenza Type A RNA (NEGATIVE) Influenza Type B RNA (NEGATIVE) SARS-CoV-2 RNA (BRITTANY) (NEGATIVE) 10/10/20 10/10/20 10/10/20 Range/Units 15:59 16:00 17:28 WBC (4.0-11.0) K/uL RBC (4.30-5.90) M/uL Hgb (12.0-16.0) g/dL Hct (36.0-46.0) % MCV (80.0-98.0) fL MCH (27.0-32.0) pg MCHC (31.0-37.0) g/dL RDW Std Deviation (28.0-62.0) fl RDW Coeff of Saulo (11.0-15.0) % Plt Count (150-400) K/uL MPV (7.40-12.00) fL Neut % (Auto) (48.0-80.0) % Lymph % (Auto) (16.0-40.0) % [place] % (Auto) (0.0-15.0) % Eos % (Auto) (0.0-7.0) % Baso % (Auto) (0.0-1.5) % Neut # (Auto) (1.4-5.7) K/uL Lymph # (Auto) (0.6-2.4) K/uL [place] # (Auto) (0.0-0.8) K/uL Eos # (Auto) (0.0-0.7) K/uL Baso # (Auto) (0.0-0.1) K/uL Nucleated RBC % /100WBC Nucleated RBCs # K/uL Sodium (136-145) mmol/L Potassium (3.5-5.1) mmol/L Chloride (98-107) mmol/L Carbon Dioxide (21.0-32.0) mmol/L BUN (7.0-18.0) mg/dL Creatinine (0.6-1.0) mg/dL Est Cr Clr Drug Dosing Estimated GFR (MDRD) ml/min Glucose (74-106) mg/dL Calcium (8.5-10.1) mg/dL Phosphorus (2.6-4.7) mg/dL Magnesium (1.8-2.4) mg/dL Total Bilirubin (0.2-1.0) mg/dL AST (15-37) IU/L ALT (14-63) IU/L Alkaline Phosphatase (46-116) U/L Total Protein (6.4-8.2) g/dL Albumin (3.4-5.0) g/dL Globulin (2.6-4.0) g/dL Albumin/Globulin Ratio (0.9-1.6) Lipase (73-393) U/L Free T4 (0.76-1.46) ng/dL TSH 3rd Generation 0.26 L (0.36-3.74) uIU/mL Urine Color DARK YELLOW Urine Appearance HAZY Urine pH 6.0 (5.0-8.0) Ur Specific [place] >= 1.030 (1.001-1.035) Urine Protein TRACE H (NEGATIVE) mg/dL Urine Glucose (UA) NEGATIVE (NEGATIVE) mg/dL Urine Ketones 15 H (NEGATIVE) mg/dL Urine Occult Blood TRACE-INTACT H (NEGATIVE) Urine Nitrite NEGATIVE (NEGATIVE) Urine Bilirubin MODERATE H (NEGATIVE) Urine Ictotest NEGATIVE Urine Urobilinogen 0.2 (<2.0) EU/dL Ur Leukocyte Esterase NEGATIVE (NEGATIVE) Urine RBC 1-4 (0-2/HPF) Urine WBC 0-3 (0-5/HPF) Ur Epithelial Cells MANY (NONE-FEW) Urine Bacteria 1+ H (NEGATIVE) Influenza Type A RNA NEGATIVE (NEGATIVE) Influenza Type B RNA NEGATIVE (NEGATIVE) SARS-CoV-2 RNA (BRITTANY) NEGATIVE (NEGATIVE) Result Diagrams: 10/10/20 15:02 10/10/20 15:02 Sepsis Event Note - Evaluation Sepsis Screening Result: No Definite Risk - Focused Exam Vital Signs: Vital Signs Temp Pulse Resp BP Pulse Ox 10/10/20 14:25 36.2 C 82 16 137/74 92 L - Problem List (1) Ambulatory dysfunction SNOMED Code(s): 879098224 ICD Code: R26.2 - DIFFICULTY IN WALKING, NOT ELSEWHERE CLASSIFIED Status: Acute Current Visit: Yes (2) Hypothyroidism SNOMED Code(s): 51477185 ICD Code: E03.9 - HYPOTHYROIDISM, UNSPECIFIED Status: Acute Current Visit: Yes (3) AMS (altered mental status) SNOMED Code(s): 506147987 ICD Code: R41.82 - ALTERED MENTAL STATUS, UNSPECIFIED Status: Acute Current Visit: Yes (4) Fracture of second lumbar vertebra SNOMED Code(s): 568485274, 824328159 ICD Code: S32.029A - UNSP FRACTURE OF SECOND LUMBAR VERTEBRA, INIT FOR CLOS FX Status: Acute Current Visit: No Qualifiers: Encounter type: initial encounter Fracture type: closed Problem List Initiated/Reviewed/Updated: Yes Orders Last 24hrs: Active Orders 24 hr Category Date Time Status Patient Status [ADT] Routine ADT 10/10/20 16:56 Active Oxygen Therapy [RC] PRN Care 10/10/20 17:54 Ordered Up With Assistance [RC] ASDIRECTED Care 10/10/20 17:54 Ordered VTE/DVT Education [RC] PER UNIT ROUTINE Care 10/10/20 17:54 Ordered Vital Signs [RC] Q4H Care 10/10/20 17:54 Ordered PT Evaluation and Treatment [CONS] Routine Cons 10/10/20 17:54 Ordered Regular Diet [DIET] Diet 10/10/20 Dinner Ordered CBC WITH AUTO DIFF [HEME] AM Lab 10/11/20 05:11 Ordered COMPREHENSIVE METABOLIC PN,CMP [CHEM] AM Lab 10/11/20 05:11 Ordered Acetaminophen [TylenoL] Med 10/10/20 17:54 Ordered 650 mg PO Q4H PRN Heparin Sodium Med 10/10/20 18:00 Ordered 5,000 units SUBCUT Q8H Ketorolac [Toradol] Med 10/10/20 17:57 Ordered 15 mg IVPUSH Q6H PRN Ondansetron [Zofran] Med 10/10/20 17:54 Ordered 4 mg IVPUSH Q4H PRN Resuscitation Status Routine Resus Stat 10/10/20 17:54 Ordered Medication Orders Acetaminophen (Tylenol) 650 mg PO Q4H PRN PRN Reason: Pain (Mild 1-3)/fever Heparin Sodium (Porcine) (Heparin Sodium) 5,000 units SUBCUT Q8H SUSAN Ketorolac Tromethamine (Toradol) 15 mg IVPUSH Q6H PRN PRN Reason: Pain Stop: 10/15/20 17:57 Ondansetron HCl (Zofran) 4 mg IVPUSH Q4H PRN PRN Reason: Nausea Assessment/Plan Comment:: Assessment and Plan: 1. Altered mental status: - Admit to med/surg. Will hold tramadol. Will give 1 L IV LR @ 75 cc/hr. Patient is fall risk and will have bed alarm. - UA did not show any signs of infection. - CT head showed no acute findings. - Code Status confirmed with granddaughter is Full Code. 2. Ambulatory dysfunction: - PT consulted. 3. Fracture of L2 vertebrae: - PT consulted. For pain, tylenol prn and toradol prn. 4. Hypothyroidism: - TSH was 0.26. Patient will need dose adjustment of levothyroxine, will hold for now. 5. DVT prophylaxis: - Heparin 5, 000 units subcut q8h. 6. Disposition: - Family seeking NH placement. <Román Browning - Last Filed: 10/10/20 23:19> H&P History of Present Illness - General Admit Problem/Dx: Admission Diagnosis/Problem Admission Diagnosis/Problem Altered mental status - History of Present Illness Initial Comments - Free Text/Narative: I performed a history and physical exam of the patient and discussed management with resident. I have reviewed the residents note and agree with documented f indings and plan unless otherwise specified in my note. e Exam - Vital Signs Vital Signs: Last Vital Signs Temp 36.9 C 10/10/20 23:14 Pulse 83 10/10/20 23:14 Resp 15 10/10/20 23:14 BP 150/75 H 10/10/20 23:14 Pulse Ox 92 L 10/10/20 14:25 - Patient Data Lab Results Last 24 hrs: Laboratory Results - last 24 hr 10/10/20 10/10/20 10/10/20 Range/Units 15:02 15:02 15:02 WBC 5.29 (4.0-11.0) K/uL RBC 4.85 (4.30-5.90) M/uL Hgb 17.1 H (12.0-16.0) g/dL Hct 50.9 H (36.0-46.0) % MCV 104.9 H (80.0-98.0) fL MCH 35.3 H (27.0-32.0) pg MCHC 33.6 (31.0-37.0) g/dL RDW Std Deviation 57.0 (28.0-62.0) fl RDW Coeff of Saulo 15 (11.0-15.0) % Plt Count 179 (150-400) K/uL MPV 9.70 (7.40-12.00) fL Neut % (Auto) 73.9 (48.0-80.0) % Lymph % (Auto) 13.0 L (16.0-40.0) % [place] % (Auto) 12.7 (0.0-15.0) % Eos % (Auto) 0.2 (0.0-7.0) % Baso % (Auto) 0.2 (0.0-1.5) % Neut # (Auto) 3.9 (1.4-5.7) K/uL Lymph # (Auto) 0.7 (0.6-2.4) K/uL [place] # (Auto) 0.7 (0.0-0.8) K/uL Eos # (Auto) 0.0 (0.0-0.7) K/uL Baso # (Auto) 0.0 (0.0-0.1) K/uL Nucleated RBC % 0.0 /100WBC Nucleated RBCs # 0 K/uL Sodium 135 L (136-145) mmol/L Potassium 3.9 (3.5-5.1) mmol/L Chloride 97 L (98-107) mmol/L Carbon Dioxide 27.4 (21.0-32.0) mmol/L BUN 29 H (7.0-18.0) mg/dL Creatinine 0.9 (0.6-1.0) mg/dL Est Cr Clr Drug Dosing TNP Estimated GFR (MDRD) 59.7 ml/min Glucose 110 H (74-106) mg/dL Calcium 9.1 (8.5-10.1) mg/dL Phosphorus 2.8 (2.6-4.7) mg/dL Magnesium 2.4 (1.8-2.4) mg/dL Total Bilirubin 0.8 (0.2-1.0) mg/dL AST 17 (15-37) IU/L ALT 17 (14-63) IU/L Alkaline Phosphatase 75 (46-116) U/L Total Protein 7.4 (6.4-8.2) g/dL Albumin 3.5 (3.4-5.0) g/dL Globulin 3.9 (2.6-4.0) g/dL Albumin/Globulin Ratio 0.9 (0.9-1.6) Lipase 67 L (73-393) U/L Free T4 1.48 H (0.76-1.46) ng/dL TSH 3rd Generation (0.36-3.74) uIU/mL Urine Color Urine Appearance Urine pH (5.0-8.0) Ur Specific [place] (1.001-1.035) Urine Protein (NEGATIVE) mg/dL Urine Glucose (UA) (NEGATIVE) mg/dL Urine Ketones (NEGATIVE) mg/dL Urine Occult Blood (NEGATIVE) Urine Nitrite (NEGATIVE) Urine Bilirubin (NEGATIVE) Urine Ictotest Urine Urobilinogen (<2.0) EU/dL Ur Leukocyte Esterase (NEGATIVE) Urine RBC (0-2/HPF) Urine WBC (0-5/HPF) Ur Epithelial Cells (NONE-FEW) Urine Bacteria (NEGATIVE) Influenza Type A RNA (NEGATIVE) Influenza Type B RNA (NEGATIVE) SARS-CoV-2 RNA (BRITTANY) (NEGATIVE) 10/10/20 10/10/20 10/10/20 Range/Units 15:59 16:00 17:28 WBC (4.0-11.0) K/uL RBC (4.30-5.90) M/uL Hgb (12.0-16.0) g/dL Hct (36.0-46.0) % MCV (80.0-98.0) fL MCH (27.0-32.0) pg MCHC (31.0-37.0) g/dL RDW Std Deviation (28.0-62.0) fl RDW Coeff of Saulo (11.0-15.0) % Plt Count (150-400) K/uL MPV (7.40-12.00) fL Neut % (Auto) (48.0-80.0) % Lymph % (Auto) (16.0-40.0) % [place] % (Auto) (0.0-15.0) % Eos % (Auto) (0.0-7.0) % Baso % (Auto) (0.0-1.5) % Neut # (Auto) (1.4-5.7) K/uL Lymph # (Auto) (0.6-2.4) K/uL [place] # (Auto) (0.0-0.8) K/uL Eos # (Auto) (0.0-0.7) K/uL Baso # (Auto) (0.0-0.1) K/uL Nucleated RBC % /100WBC Nucleated RBCs # K/uL Sodium (136-145) mmol/L Potassium (3.5-5.1) mmol/L Chloride (98-107) mmol/L Carbon Dioxide (21.0-32.0) mmol/L BUN (7.0-18.0) mg/dL Creatinine (0.6-1.0) mg/dL Est Cr Clr Drug Dosing Estimated GFR (MDRD) ml/min Glucose (74-106) mg/dL Calcium (8.5-10.1) mg/dL Phosphorus (2.6-4.7) mg/dL Magnesium (1.8-2.4) mg/dL Total Bilirubin (0.2-1.0) mg/dL AST (15-37) IU/L ALT (14-63) IU/L Alkaline Phosphatase (46-116) U/L Total Protein (6.4-8.2) g/dL Albumin (3.4-5.0) g/dL Globulin (2.6-4.0) g/dL Albumin/Globulin Ratio (0.9-1.6) Lipase (73-393) U/L Free T4 (0.76-1.46) ng/dL TSH 3rd Generation 0.26 L (0.36-3.74) uIU/mL Urine Color DARK YELLOW Urine Appearance HAZY Urine pH 6.0 (5.0-8.0) Ur Specific [place] >= 1.030 (1.001-1.035) Urine Protein TRACE H (NEGATIVE) mg/dL Urine Glucose (UA) NEGATIVE (NEGATIVE) mg/dL Urine Ketones 15 H (NEGATIVE) mg/dL Urine Occult Blood TRACE-INTACT H (NEGATIVE) Urine Nitrite NEGATIVE (NEGATIVE) Urine Bilirubin MODERATE H (NEGATIVE) Urine Ictotest NEGATIVE Urine Urobilinogen 0.2 (<2.0) EU/dL Ur Leukocyte Esterase NEGATIVE (NEGATIVE) Urine RBC 1-4 (0-2/HPF) Urine WBC 0-3 (0-5/HPF) Ur Epithelial Cells MANY (NONE-FEW) Urine Bacteria 1+ H (NEGATIVE) Influenza Type A RNA NEGATIVE (NEGATIVE) Influenza Type B RNA NEGATIVE (NEGATIVE) SARS-CoV-2 RNA (BRITTANY) NEGATIVE (NEGATIVE) Result Diagrams: 10/10/20 15:02 10/10/20 15:02 Sepsis Event Note - Focused Exam Vital Signs: Vital Signs Temp Pulse Resp BP Pulse Ox 10/10/20 23:14 36.9 C 83 15 150/75 H 10/10/20 20:22 36.8 C 87 15 143/69 H 10/10/20 14:25 36.2 C 82 16 137/74 92 L Orders Last 24hrs: Active Orders 24 hr Category Date Time Status Patient Status [ADT] Routine ADT 10/10/20 16:56 Active Communication Order [RC] ROUTINE Care 10/10/20 19:00 Active Oxygen Therapy [RC] PRN Care 10/10/20 17:54 Active Up With Assistance [RC] ASDIRECTED Care 10/10/20 17:54 Active VTE/DVT Education [RC] PER UNIT ROUTINE Care 10/10/20 17:54 Active Vital Signs [RC] Q4H Care 10/10/20 17:54 Active Consult to Wound Care Services [CONS] Routine Cons 10/10/20 21:01 Active PT Evaluation and Treatment [CONS] Routine Cons 10/10/20 17:54 Active Regular Diet [DIET] Diet 10/10/20 Dinner Active CBC WITH AUTO DIFF [HEME] AM Lab 10/11/20 05:11 Ordered COMPREHENSIVE METABOLIC PN,CMP [CHEM] AM Lab 10/11/20 05:11 Ordered Acetaminophen [TylenoL] Med 10/10/20 17:54 Active 650 mg PO Q4H PRN Heparin Sodium Med 10/10/20 21:00 Active 5,000 units SUBCUT Q8H Ketorolac [Toradol] Med 10/10/20 17:57 Active 15 mg IVPUSH Q6H PRN Lactated Ringers [Ringers, Lactated] 1,000 ml Med 10/10/20 19:00 Active IV ASDIRECTED Ondansetron [Zofran] Med 10/10/20 17:54 Active 4 mg IVPUSH Q4H PRN Pantoprazole [ProTONIX IV] 40 mg Med 10/10/20 21:00 Active Sodium Chloride 0.9% [Normal Saline] 10 ml IVPUSH DAILY@2100 Resuscitation Status Routine Resus Stat 10/10/20 17:54 Ordered Medication Orders Acetaminophen (Tylenol) 650 mg PO Q4H PRN PRN Reason: Pain (Mild 1-3)/fever Heparin Sodium (Porcine) (Heparin Sodium) 5,000 units SUBCUT Q8H [facility] Last Admin: 10/10/20 21:38 Dose: 5,000 units Documented by: YESSENIA Lactated Ringer's (Ringers, Lactated) 1,000 mls @ 75 mls/hr IV ASDIRECTED [facility] Stop: 10/11/20 08:19 Last Admin: 10/10/20 21:34 Dose: 75 mls/hr Documented by: YESSENIA Pantoprazole Sodium 40 mg/ (Sodium Chloride) 10 mls @ 300 mls/hr IVPUSH D AILY@2100 [facility] Last Admin: 10/10/20 21:37 Dose: 300 mls/hr Documented by: YESSENIA Ketorolac Tromethamine (Toradol) 15 mg IVPUSH Q6H PRN PRN Reason: Pain Stop: 10/15/20 17:57 Ondansetron HCl (Zofran) 4 mg IVPUSH Q4H PRN PRN Reason: Nausea
[2020-10-10] MEDS ORDERED: Heparin Sodium 5,000 Units/ML Vial SUBCUT SCH (18:00)
[2020-10-10] MEDS ORDERED: Lactated Ringers 1,000 ML IV SCH (19:00)
[2020-10-10] MEDS ORDERED: Pantoprazole 40 MG in Sodium Chloride 0.9% 10 ML IVPUSH SCH (19:00)
[2020-10-10] MEDS: Pantoprazole 40 MG in Sodium Chloride 0.9% 10 ML IVPUSH SCH (21:37)
[2020-10-10] MEDS: Heparin Sodium 5,000 Units/ML Vial SUBCUT SCH (21:38)
[2020-10-11] MEDS: Ketorolac 15 MG/ML SDV IVPUSH PRN (01:44)
[2020-10-11] MEDS: Heparin Sodium 5,000 Units/ML Vial SUBCUT SCH ×3 (05:35→20:29)
[2020-10-11 05:51] LABS: BLOOD UREA NITROGEN,BUN 26 mg/dL (7.0-18.0); CARBON DIOXIDE,CO2 27.2 mmol/L (21.0-32.0); CHLORIDE,CL 98 mmol/L (98-107); GLUCOSE RANDOM 87 mg/dL (74-106); POTASSIUM,K 3.2 mmol/L (3.5-5.1); SODIUM,NA 134 mmol/L (136-145)
[2020-10-11] MEDS ORDERED: Potassium Chloride 20 MEQ Tab.ER PO ONE (07:32)
--- NOTE | 2020-10-11 08:27 | PCM.PN ---
<Lanre Gatica - Last Filed: 10/11/20 10:30> - General Info Date of Service: 10/11/20 Subjective Update: Patient not responding to questions appropriately at bedside this morning. She appears to be reaching for objects in the air. Per nursing, did not sleep much overnight. - Patient Data Vitals - Most Recent: Last Vital Signs Temp 36.7 C 10/11/20 07:39 Pulse 76 10/11/20 07:39 Resp 20 10/11/20 07:39 BP 147/70 H 10/11/20 07:39 Pulse Ox 93 L 10/11/20 07:39 Weight - Most Recent: 41.957 kg I&O - Last 24 Hours: Intake & Output 10/10/20 10/11/20 10/11/20 22:59 06:59 14:59 Intake Total 150 Balance 150 Lab Results Last 24 Hours: Laboratory Results - last 24 hr 10/10/20 10/10/20 10/10/20 Range/Units 15:02 15:02 15:02 WBC 5.29 (4.0-11.0) K/uL RBC 4.85 (4.30-5.90) M/uL Hgb 17.1 H (12.0-16.0) g/dL Hct 50.9 H (36.0-46.0) % MCV 104.9 H (80.0-98.0) fL MCH 35.3 H (27.0-32.0) pg MCHC 33.6 (31.0-37.0) g/dL RDW Std Deviation 57.0 (28.0-62.0) fl RDW Coeff of Saulo 15 (11.0-15.0) % Plt Count 179 (150-400) K/uL MPV 9.70 (7.40-12.00) fL Neut % (Auto) 73.9 (48.0-80.0) % Lymph % (Auto) 13.0 L (16.0-40.0) % [place] % (Auto) 12.7 (0.0-15.0) % Eos % (Auto) 0.2 (0.0-7.0) % Baso % (Auto) 0.2 (0.0-1.5) % Neut # (Auto) 3.9 (1.4-5.7) K/uL Lymph # (Auto) 0.7 (0.6-2.4) K/uL [place] # (Auto) 0.7 (0.0-0.8) K/uL Eos # (Auto) 0.0 (0.0-0.7) K/uL Baso # (Auto) 0.0 (0.0-0.1) K/uL Nucleated RBC % 0.0 /100WBC Nucleated RBCs # 0 K/uL Sodium 135 L (136-145) mmol/L Potassium 3.9 (3.5-5.1) mmol/L Chloride 97 L (98-107) mmol/L Carbon Dioxide 27.4 (21.0-32.0) mmol/L BUN 29 H (7.0-18.0) mg/dL Creatinine 0.9 (0.6-1.0) mg/dL Est Cr Clr Drug Dosing TNP Estimated GFR (MDRD) 59.7 ml/min Glucose 110 H (74-106) mg/dL Calcium 9.1 (8.5-10.1) mg/dL Phosphorus 2.8 (2.6-4.7) mg/dL Magnesium 2.4 (1.8-2.4) mg/dL Total Bilirubin 0.8 (0.2-1.0) mg/dL AST 17 (15-37) IU/L ALT 17 (14-63) IU/L Alkaline Phosphatase 75 (46-116) U/L Total Protein 7.4 (6.4-8.2) g/dL Albumin 3.5 (3.4-5.0) g/dL Globulin 3.9 (2.6-4.0) g/dL Albumin/Globulin Ratio 0.9 (0.9-1.6) Lipase 67 L (73-393) U/L Free T4 1.48 H (0.76-1.46) ng/dL TSH 3rd Generation (0.36-3.74) uIU/mL Urine Color Urine Appearance Urine pH (5.0-8.0) Ur Specific [place] (1.001-1.035) Urine Protein (NEGATIVE) mg/dL Urine Glucose (UA) (NEGATIVE) mg/dL Urine Ketones (NEGATIVE) mg/dL Urine Occult Blood (NEGATIVE) Urine Nitrite (NEGATIVE) Urine Bilirubin (NEGATIVE) Urine Ictotest Urine Urobilinogen (<2.0) EU/dL Ur Leukocyte Esterase (NEGATIVE) Urine RBC (0-2/HPF) Urine WBC (0-5/HPF) Ur Epithelial Cells (NONE-FEW) Urine Bacteria (NEGATIVE) Influenza Type A RNA (NEGATIVE) Influenza Type B RNA (NEGATIVE) SARS-CoV-2 RNA (BRITTANY) (NEGATIVE) 10/10/20 10/10/20 10/10/20 Range/Units 15:59 16:00 17:28 WBC (4.0-11.0) K/uL RBC (4.30-5.90) M/uL Hgb (12.0-16.0) g/dL Hct (36.0-46.0) % MCV (80.0-98.0) fL MCH (27.0-32.0) pg MCHC (31.0-37.0) g/dL RDW Std Deviation (28.0-62.0) fl RDW Coeff of Saulo (11.0-15.0) % Plt Count (150-400) K/uL MPV (7.40-12.00) fL Neut % (Auto) (48.0-80.0) % Lymph % (Auto) (16.0-40.0) % [place] % (Auto) (0.0-15.0) % Eos % (Auto) (0.0-7.0) % Baso % (Auto) (0.0-1.5) % Neut # (Auto) (1.4-5.7) K/uL Lymph # (Auto) (0.6-2.4) K/uL [place] # (Auto) (0.0-0.8) K/uL Eos # (Auto) (0.0-0.7) K/uL Baso # (Auto) (0.0-0.1) K/uL Nucleated RBC % /100WBC Nucleated RBCs # K/uL Sodium (136-145) mmol/L Potassium (3.5-5.1) mmol/L Chloride (98-107) mmol/L Carbon Dioxide (21.0-32.0) mmol/L BUN (7.0-18.0) mg/dL Creatinine (0.6-1.0) mg/dL Est Cr Clr Drug Dosing Estimated GFR (MDRD) ml/min Glucose (74-106) mg/dL Calcium (8.5-10.1) mg/dL Phosphorus (2.6-4.7) mg/dL Magnesium (1.8-2.4) mg/dL Total Bilirubin (0.2-1.0) mg/dL AST (15-37) IU/L ALT (14-63) IU/L Alkaline Phosphatase (46-116) U/L Total Protein (6.4-8.2) g/dL Albumin (3.4-5.0) g/dL Globulin (2.6-4.0) g/dL Albumin/Globulin Ratio (0.9-1.6) Lipase (73-393) U/L Free T4 (0.76-1.46) ng/dL TSH 3rd Generation 0.26 L (0.36-3.74) uIU/mL Urine Color DARK YELLOW Urine Appearance HAZY Urine pH 6.0 (5.0-8.0) Ur Specific [place] >= 1.030 (1.001-1.035) Urine Protein TRACE H (NEGATIVE) mg/dL Urine Glucose (UA) NEGATIVE (NEGATIVE) mg/dL Urine Ketones 15 H (NEGATIVE) mg/dL Urine Occult Blood TRACE-INTACT H (NEGATIVE) Urine Nitrite NEGATIVE (NEGATIVE) Urine Bilirubin MODERATE H (NEGATIVE) Urine Ictotest NEGATIVE Urine Urobilinogen 0.2 (<2.0) EU/dL Ur Leukocyte Esterase NEGATIVE (NEGATIVE) Urine RBC 1-4 (0-2/HPF) Urine WBC 0-3 (0-5/HPF) Ur Epithelial Cells MANY (NONE-FEW) Urine Bacteria 1+ H (NEGATIVE) Influenza Type A RNA NEGATIVE (NEGATIVE) Influenza Type B RNA NEGATIVE (NEGATIVE) SARS-CoV-2 RNA (BRITTANY) NEGATIVE (NEGATIVE) 10/11/20 10/11/20 10/11/20 Range/Units 05:13 05:13 05:13 WBC 4.11 (4.0-11.0) K/uL RBC 4.44 (4.30-5.90) M/uL Hgb 15.3 (12.0-16.0) g/dL Hct 46.1 H (36.0-46.0) % MCV 103.8 H (80.0-98.0) fL MCH 34.5 H (27.0-32.0) pg MCHC 33.2 (31.0-37.0) g/dL RDW Std Deviation 54.9 (28.0-62.0) fl RDW Coeff of Saulo 14 (11.0-15.0) % Plt Count 177 (150-400) K/uL MPV 9.60 (7.40-12.00) fL Neut % (Auto) 67.2 (48.0-80.0) % Lymph % (Auto) 19.0 (16.0-40.0) % [place] % (Auto) 12.9 (0.0-15.0) % Eos % (Auto) 0.7 (0.0-7.0) % Baso % (Auto) 0.2 (0.0-1.5) % Neut # (Auto) 2.8 (1.4-5.7) K/uL Lymph # (Auto) 0.8 (0.6-2.4) K/uL [place] # (Auto) 0.5 (0.0-0.8) K/uL Eos # (Auto) 0.0 (0.0-0.7) K/uL Baso # (Auto) 0.0 (0.0-0.1) K/uL Nucleated RBC % 0.0 /100WBC Nucleated RBCs # 0 K/uL Sodium 134 L (136-145) mmol/L Potassium 3.2 L (3.5-5.1) mmol/L Chloride 98 (98-107) mmol/L Carbon Dioxide 27.2 (21.0-32.0) mmol/L BUN 26 H (7.0-18.0) mg/dL Creatinine 0.9 (0.6-1.0) mg/dL Est Cr Clr Drug Dosing TNP Estimated GFR (MDRD) 59.7 ml/min Glucose 87 (74-106) mg/dL Calcium 8.3 L (8.5-10.1) mg/dL Phosphorus (2.6-4.7) mg/dL Magnesium 1.9 (1.8-2.4) mg/dL Total Bilirubin 1.2 H (0.2-1.0) mg/dL AST 16 (15-37) IU/L ALT 15 (14-63) IU/L Alkaline Phosphatase 66 (46-116) U/L Total Protein 6.3 L (6.4-8.2) g/dL Albumin 3.0 L (3.4-5.0) g/dL Globulin 3.3 (2.6-4.0) g/dL Albumin/Globulin Ratio 0.9 (0.9-1.6) Lipase (73-393) U/L Free T4 (0.76-1.46) ng/dL TSH 3rd Generation (0.36-3.74) uIU/mL Urine Color Urine Appearance Urine pH (5.0-8.0) Ur Specific [place] (1.001-1.035) Urine Protein (NEGATIVE) mg/dL Urine Glucose (UA) (NEGATIVE) mg/dL Urine Ketones (NEGATIVE) mg/dL Urine Occult Blood (NEGATIVE) Urine Nitrite (NEGATIVE) Urine Bilirubin (NEGATIVE) Urine Ictotest Urine Urobilinogen (<2.0) EU/dL Ur Leukocyte Esterase (NEGATIVE) Urine RBC (0-2/HPF) Urine WBC (0-5/HPF) Ur Epithelial Cells (NONE-FEW) Urine Bacteria (NEGATIVE) Influenza Type A RNA (NEGATIVE) Influenza Type B RNA (NEGATIVE) SARS-CoV-2 RNA (BRITTANY) (NEGATIVE) Med Orders - Current: Current Medications Acetaminophen (Tylenol) 650 mg PO Q4H PRN PRN Reason: Pain (Mild 1-3)/fever Heparin Sodium (Porcine) (Heparin Sodium) 5,000 units SUBCUT Q8H [facility] Last Admin: 10/11/20 05:35 Dose: 5,000 units Documented by: Pantoprazole Sodium 40 mg/ (Sodium Chloride) 10 mls @ 300 mls/hr IVPUSH DAILY@2100 [facility] Last Admin: 10/10/20 21:37 Dose: 300 mls/hr Documented by: Ketorolac Tromethamine (Toradol) 15 mg IVPUSH Q6H PRN PRN Reason: Pain Stop: 10/15/20 17:57 Last Admin: 10/11/20 01:44 Dose: 15 mg Documented by: Ondansetron HCl (Zofran) 4 mg IVPUSH Q4H PRN PRN Reason: Nausea Discontinued Medications Heparin Sodium (Porcine) (Heparin Sodium) 5,000 units SUBCUT Q8H [facility] Last Admin: 10/11/20 00:49 Dose: Not Given Documented by: Lactated Ringer's (Ringers, Lactated) 1,000 mls @ 75 mls/hr IV ASDIRECTED SUSAN Stop: 10/11/20 08:19 Last Admin: 10/10/20 21:34 Dose: 75 mls/hr Documented by: Pantoprazole Sodium 40 mg/ (Sodium Chloride) 10 mls @ 300 mls/hr IVPUSH DAILY [facility] Last Admin: 10/11/20 00:49 Dose: Not Given Documented by: Potassium Chloride (Klor-Con M20) 40 meq PO ONETIME ONE Stop: 10/11/20 07:33 Last Admin: 10/11/20 08:05 Dose: 40 meq Documented by: - Exam General: Other (AOx1, not responding to questions appropriately.) Lungs: Clear to Auscultation, Normal Respiratory Effort Cardiovascular: Regular Rate, Regular Rhythm GI/Abdominal Exam: Normal Bowel Sounds, Soft, Non-Tender, No Distention Extremities: Normal Inspection, No Pedal Edema - Patient Data Lab Results Last 24 hrs: Laboratory Results - last 24 hr 10/10/20 10/10/20 10/10/20 Range/Units 15:02 15:02 15:02 WBC 5.29 (4.0-11.0) K/uL RBC 4.85 (4.30-5.90) M/uL Hgb 17.1 H (12.0-16.0) g/dL Hct 50.9 H (36.0-46.0) % MCV 104.9 H (80.0-98.0) fL MCH 35.3 H (27.0-32.0) pg MCHC 33.6 (31.0-37.0) g/dL RDW Std Deviation 57.0 (28.0-62.0) fl RDW Coeff of Saulo 15 (11.0-15.0) % Plt Count 179 (150-400) K/uL MPV 9.70 (7.40-12.00) fL Neut % (Auto) 73.9 (48.0-80.0) % Lymph % (Auto) 13.0 L (16.0-40.0) % [place] % (Auto) 12.7 (0.0-15.0) % Eos % (Auto) 0.2 (0.0-7.0) % Baso % (Auto) 0.2 (0.0-1.5) % Neut # (Auto) 3.9 (1.4-5.7) K/uL Lymph # (Auto) 0.7 (0.6-2.4) K/uL [place] # (Auto) 0.7 (0.0-0.8) K/uL Eos # (Auto) 0.0 (0.0-0.7) K/uL Baso # (Auto) 0.0 (0.0-0.1) K/uL Nucleated RBC % 0.0 /100WBC Nucleated RBCs # 0 K/uL Sodium 135 L (136-145) mmol/L Potassium 3.9 (3.5-5.1) mmol/L Chloride 97 L (98-107) mmol/L Carbon Dioxide 27.4 (21.0-32.0) mmol/L BUN 29 H (7.0-18.0) mg/dL Creatinine 0.9 (0.6-1.0) mg/dL Est Cr Clr Drug Dosing TNP Estimated GFR (MDRD) 59.7 ml/min Glucose 110 H (74-106) mg/dL Calcium 9.1 (8.5-10.1) mg/dL Phosphorus 2.8 (2.6-4.7) mg/dL Magnesium 2.4 (1.8-2.4) mg/dL Total Bilirubin 0.8 (0.2-1.0) mg/dL AST 17 (15-37) IU/L ALT 17 (14-63) IU/L Alkaline Phosphatase 75 (46-116) U/L Total Protein 7.4 (6.4-8.2) g/dL Albumin 3.5 (3.4-5.0) g/dL Globulin 3.9 (2.6-4.0) g/dL Albumin/Globulin Ratio 0.9 (0.9-1.6) Lipase 67 L (73-393) U/L Free T4 1.48 H (0.76-1.46) ng/dL TSH 3rd Generation (0.36-3.74) uIU/mL Urine Color Urine Appearance Urine pH (5.0-8.0) Ur Specific [place] (1.001-1.035) Urine Protein (NEGATIVE) mg/dL Urine Glucose (UA) (NEGATIVE) mg/dL Urine Ketones (NEGATIVE) mg/dL Urine Occult Blood (NEGATIVE) Urine Nitrite (NEGATIVE) Urine Bilirubin (NEGATIVE) Urine Ictotest Urine Urobilinogen (<2.0) EU/dL Ur Leukocyte Esterase (NEGATIVE) Urine RBC (0-2/HPF) Urine WBC (0-5/HPF) Ur Epithelial Cells (NONE-FEW) Urine Bacteria (NEGATIVE) Influenza Type A RNA (NEGATIVE) Influenza Type B RNA (NEGATIVE) SARS-CoV-2 RNA (BRITTANY) (NEGATIVE) 10/10/20 10/10/20 10/10/20 Range/Units 15:59 16:00 17:28 WBC (4.0-11.0) K/uL RBC (4.30-5.90) M/uL Hgb (12.0-16.0) g/dL Hct (36.0-46.0) % MCV (80.0-98.0) fL MCH (27.0-32.0) pg MCHC (31.0-37.0) g/dL RDW Std Deviation (28.0-62.0) fl RDW Coeff of Saulo (11.0-15.0) % Plt Count (150-400) K/uL MPV (7.40-12.00) fL Neut % (Auto) (48.0-80.0) % Lymph % (Auto) (16.0-40.0) % [place] % (Auto) (0.0-15.0) % Eos % (Auto) (0.0-7.0) % Baso % (Auto) (0.0-1.5) % Neut # (Auto) (1.4-5.7) K/uL Lymph # (Auto) (0.6-2.4) K/uL [place] # (Auto) (0.0-0.8) K/uL Eos # (Auto) (0.0-0.7) K/uL Baso # (Auto) (0.0-0.1) K/uL Nucleated RBC % /100WBC Nucleated RBCs # K/uL Sodium (136-145) mmol/L Potassium (3.5-5.1) mmol/L Chloride (98-107) mmol/L Carbon Dioxide (21.0-32.0) mmol/L BUN (7.0-18.0) mg/dL Creatinine (0.6-1.0) mg/dL Est Cr Clr Drug Dosing Estimated GFR (MDRD) ml/min Glucose (74-106) mg/dL Calcium (8.5-10.1) mg/dL Phosphorus (2.6-4.7) mg/dL Magnesium (1.8-2.4) mg/dL Total Bilirubin (0.2-1.0) mg/dL AST (15-37) IU/L ALT (14-63) IU/L Alkaline Phosphatase (46-116) U/L Total Protein (6.4-8.2) g/dL Albumin (3.4-5.0) g/dL Globulin (2.6-4.0) g/dL Albumin/Globulin Ratio (0.9-1.6) Lipase (73-393) U/L Free T4 (0.76-1.46) ng/dL TSH 3rd Generation 0.26 L (0.36-3.74) uIU/mL Urine Color DARK YELLOW Urine Appearance HAZY Urine pH 6.0 (5.0-8.0) Ur Specific [place] >= 1.030 (1.001-1.035) Urine Protein TRACE H (NEGATIVE) mg/dL Urine Glucose (UA) NEGATIVE (NEGATIVE) mg/dL Urine Ketones 15 H (NEGATIVE) mg/dL Urine Occult Blood TRACE-INTACT H (NEGATIVE) Urine Nitrite NEGATIVE (NEGATIVE) Urine Bilirubin MODERATE H (NEGATIVE) Urine Ictotest NEGATIVE Urine Urobilinogen 0.2 (<2.0) EU/dL Ur Leukocyte Esterase NEGATIVE (NEGATIVE) Urine RBC 1-4 (0-2/HPF) Urine WBC 0-3 (0-5/HPF) Ur Epithelial Cells MANY (NONE-FEW) Urine Bacteria 1+ H (NEGATIVE) Influenza Type A RNA NEGATIVE (NEGATIVE) Influenza Type B RNA NEGATIVE (NEGATIVE) SARS-CoV-2 RNA (BRITTANY) NEGATIVE (NEGATIVE) 10/11/20 10/11/20 10/11/20 Range/Units 05:13 05:13 05:13 WBC 4.11 (4.0-11.0) K/uL RBC 4.44 (4.30-5.90) M/uL Hgb 15.3 (12.0-16.0) g/dL Hct 46.1 H (36.0-46.0) % MCV 103.8 H (80.0-98.0) fL MCH 34.5 H (27.0-32.0) pg MCHC 33.2 (31.0-37.0) g/dL RDW Std Deviation 54.9 (28.0-62.0) fl RDW Coeff of Saulo 14 (11.0-15.0) % Plt Count 177 (150-400) K/uL MPV 9.60 (7.40-12.00) fL Neut % (Auto) 67.2 (48.0-80.0) % Lymph % (Auto) 19.0 (16.0-40.0) % [place] % (Auto) 12.9 (0.0-15.0) % Eos % (Auto) 0.7 (0.0-7.0) % Baso % (Auto) 0.2 (0.0-1.5) % Neut # (Auto) 2.8 (1.4-5.7) K/uL Lymph # (Auto) 0.8 (0.6-2.4) K/uL [place] # (Auto) 0.5 (0.0-0.8) K/uL Eos # (Auto) 0.0 (0.0-0.7) K/uL Baso # (Auto) 0.0 (0.0-0.1) K/uL Nucleated RBC % 0.0 /100WBC Nucleated RBCs # 0 K/uL Sodium 134 L (136-145) mmol/L Potassium 3.2 L (3.5-5.1) mmol/L Chloride 98 (98-107) mmol/L Carbon Dioxide 27.2 (21.0-32.0) mmol/L BUN 26 H (7.0-18.0) mg/dL Creatinine 0.9 (0.6-1.0) mg/dL Est Cr Clr Drug Dosing TNP Estimated GFR (MDRD) 59.7 ml/min Glucose 87 (74-106) mg/dL Calcium 8.3 L (8.5-10.1) mg/dL Phosphorus (2.6-4.7) mg/dL Magnesium 1.9 (1.8-2.4) mg/dL Total Bilirubin 1.2 H (0.2-1.0) mg/dL AST 16 (15-37) IU/L ALT 15 (14-63) IU/L Alkaline Phosphatase 66 (46-116) U/L Total Protein 6.3 L (6.4-8.2) g/dL Albumin 3.0 L (3.4-5.0) g/dL Globulin 3.3 (2.6-4.0) g/dL Albumin/Globulin Ratio 0.9 (0.9-1.6) Lipase (73-393) U/L Free T4 (0.76-1.46) ng/dL TSH 3rd Generation (0.36-3.74) uIU/mL Urine Color Urine Appearance Urine pH (5.0-8.0) Ur Specific [place] (1.001-1.035) Urine Protein (NEGATIVE) mg/dL Urine Glucose (UA) (NEGATIVE) mg/dL Urine Ketones (NEGATIVE) mg/dL Urine Occult Blood (NEGATIVE) Urine Nitrite (NEGATIVE) Urine Bilirubin (NEGATIVE) Urine Ictotest Urine Urobilinogen (<2.0) EU/dL Ur Leukocyte Esterase (NEGATIVE) Urine RBC (0-2/HPF) Urine WBC (0-5/HPF) Ur Epithelial Cells (NONE-FEW) Urine Bacteria (NEGATIVE) Influenza Type A RNA (NEGATIVE) Influenza Type B RNA (NEGATIVE) SARS-CoV-2 RNA (BRITTANY) (NEGATIVE) Result Diagrams: 10/11/20 05:13 10/11/20 05:13 Sepsis Event Note - Evaluation Sepsis Screening Result: No Definite Risk - Focused Exam Vital Signs: Vital Signs Temp Pulse Resp BP Pulse Ox 10/11/20 07:39 36.7 C 76 20 147/70 H 93 L 10/11/20 03:32 36.7 C 78 16 149/79 H 10/10/20 23:14 36.9 C 83 15 150/75 H - Problem List & Annotations (1) Ambulatory dysfunction SNOMED Code(s): 245743687 Code(s): R26.2 - DIFFICULTY IN WALKING, NOT ELSEWHERE CLASSIFIED Status: Acute Current Visit: Yes (2) Hypothyroidism SNOMED Code(s): 64841716 Code(s): E03.9 - HYPOTHYROIDISM, UNSPECIFIED Status: Acute Current Visit: Yes (3) AMS (altered mental status) SNOMED Code(s): 954421644 Code(s): R41.82 - ALTERED MENTAL STATUS, UNSPECIFIED Status: Acute Current Visit: Yes (4) Fracture of second lumbar vertebra SNOMED Code(s): 314699816, 912219795 Code(s): S32.029A - UNSP FRACTURE OF SECOND LUMBAR VERTEBRA, INIT FOR CLOS FX Status: Acute Current Visit: No Qualifiers: Encounter type: initial encounter Fracture type: closed (5) Hypokalemia SNOMED Code(s): 57560162 Code(s): E87.6 - HYPOKALEMIA Status: Acute Current Visit: Yes - Problem List Review Problem List Initiated/Reviewed/Updated: Yes - My Orders Last 24 Hours: My Active Orders 10/10/20 Dinner Regular Diet [DIET] 10/10/20 17:54 Oxygen Therapy [RC] PRN Up With Assistance [RC] ASDIRECTED VTE/DVT Education [RC] PER UNIT ROUTINE Vital Signs [RC] Q4H PT Evaluation and Treatment [CONS] Routine Acetaminophen [TylenoL] 650 mg PO Q4H PRN Ondansetron [Zofran] 4 mg IVPUSH Q4H PRN Resuscitation Status Routine 10/10/20 17:57 Ketorolac [Toradol] 15 mg IVPUSH Q6H PRN 10/10/20 19:00 Communication Order [RC] ROUTINE 10/10/20 21:00 Heparin Sodium 5,000 units SUBCUT Q8H Pantoprazole [ProTONIX IV] 40 mg Sodium Chloride 0.9% [Normal Saline] 10 ml IVPUSH DAILY@2100 10/10/20 21:01 Consult to Wound Care Services [CONS] Routine - Plan Plan:: Assessment and Plan: 1. Altered mental status: - Tramadol held on admission and will continue to monitor if her mentation improves. Will consider MRI tomorrow if no improvement. - UA did not show signs of infection. - CT head showed no acute findings. 2. Ambulatory dysfunction: - PT consulted. 3. Fracture of L2 vertebrae: - PT consulted. For pain, Tylenol prn and Toradol prn. 4. Hypokalemia: - Will replete with PO KCl 40 mEq x1. 5. Hypothyroidism: - TSH was 0.26. Patient will need dose adjustment of levothyroxine, will hold for now. 6. DVT prophylaxis: - Heparin 5, 000 units subcut q8h. 7. Disposition: - Family seeking NH placement. <Nam,Hooria - Last Filed: 10/12/20 00:25> - General Info Subjective Update: I have seen and evaluated the patient and agree with the residents note unless specified in my note - Patient Data Vitals - Most Recent: Last Vital Signs Temp 36.8 C 10/11/20 23:32 Pulse 73 10/11/20 23:32 Resp 16 10/11/20 23:32 BP 143/81 H 10/11/20 23:32 Pulse Ox 93 L 10/11/20 23:32 I&O - Last 24 Hours: Intake & Output 10/11/20 10/11/20 10/12/20 14:59 22:59 06:59 Intake Total 480 Output Total 0 Balance 480 Lab Results Last 24 Hours: Laboratory Results - last 24 hr 10/11/20 10/11/20 10/11/20 Range/Units 05:13 05:13 05:13 WBC 4.11 (4.0-11.0) K/uL RBC 4.44 (4.30-5.90) M/uL Hgb 15.3 (12.0-16.0) g/dL Hct 46.1 H (36.0-46.0) % MCV 103.8 H (80.0-98.0) fL MCH 34.5 H (27.0-32.0) pg MCHC 33.2 (31.0-37.0) g/dL RDW Std Deviation 54.9 (28.0-62.0) fl RDW Coeff of Saulo 14 (11.0-15.0) % Plt Count 177 (150-400) K/uL MPV 9.60 (7.40-12.00) fL Neut % (Auto) 67.2 (48.0-80.0) % Lymph % (Auto) 19.0 (16.0-40.0) % [place] % (Auto) 12.9 (0.0-15.0) % Eos % (Auto) 0.7 (0.0-7.0) % Baso % (Auto) 0.2 (0.0-1.5) % Neut # (Auto) 2.8 (1.4-5.7) K/uL Lymph # (Auto) 0.8 (0.6-2.4) K/uL [place] # (Auto) 0.5 (0.0-0.8) K/uL Eos # (Auto) 0.0 (0.0-0.7) K/uL Baso # (Auto) 0.0 (0.0-0.1) K/uL Nucleated RBC % 0.0 /100WBC Nucleated RBCs # 0 K/uL Sodium 134 L (136-145) mmol/L Potassium 3.2 L (3.5-5.1) mmol/L Chloride 98 (98-107) mmol/L Carbon Dioxide 27.2 (21.0-32.0) mmol/L BUN 26 H (7.0-18.0) mg/dL Creatinine 0.9 (0.6-1.0) mg/dL Est Cr Clr Drug Dosing TNP Estimated GFR (MDRD) 59.7 ml/min Glucose 87 (74-106) mg/dL Calcium 8.3 L (8.5-10.1) mg/dL Magnesium 1.9 (1.8-2.4) mg/dL Total Bilirubin 1.2 H (0.2-1.0) mg/dL AST 16 (15-37) IU/L ALT 15 (14-63) IU/L Alkaline Phosphatase 66 (46-116) U/L Total Protein 6.3 L (6.4-8.2) g/dL Albumin 3.0 L (3.4-5.0) g/dL Globulin 3.3 (2.6-4.0) g/dL Albumin/Globulin Ratio 0.9 (0.9-1.6) Med Orders - Current: Current Medications Acetaminophen (Tylenol) 650 mg PO Q4H PRN PRN Reason: Pain (Mild 1-3)/fever Heparin Sodium (Porcine) (Heparin Sodium) 5,000 units SUBCUT Q8H [facility] Last Admin: 10/11/20 20:29 Dose: 5,000 units Documented by: Pantoprazole Sodium 40 mg/ (Sodium Chloride) 10 mls @ 300 mls/hr IVPUSH DAILY@2100 [facility] Last Admin: 10/11/20 20:29 Dose: 300 mls/hr Documented by: Ketorolac Tromethamine (Toradol) 15 mg IVPUSH Q6H PRN PRN Reason: Pain Stop: 10/15/20 17:57 Last Admin: 10/11/20 01:44 Dose: 15 mg Documented by: Melatonin (Melatonin) 3 mg PO BEDTIME PRN PRN Reason: Insomnia Last Admin: 10/11/20 20:28 Dose: 3 mg Documented by: Ondansetron HCl (Zofran) 4 mg IVPUSH Q4H PRN PRN Reason: Nausea Discontinued Medications Heparin Sodium (Porcine) (Heparin Sodium) 5,000 units SUBCUT Q8H [facility] Last Admin: 10/11/20 00:49 Dose: Not Given Documented by: Lactated Ringer's (Ringers, Lactated) 1,000 mls @ 75 mls/hr IV ASDIRECTED [facility] Stop: 10/11/20 08:19 Last Admin: 10/10/20 21:34 Dose: 75 mls/hr Documented by: Pantoprazole Sodium 40 mg/ (Sodium Chloride) 10 mls @ 300 mls/hr IVPUSH DAILY [facility] Last Admin: 10/11/20 00:49 Dose: Not Given Documented by: Olanzapine (Zyprexa) 5 mg PO ONETIME ONE Stop: 10/11/20 19:03 Last Admin: 10/11/20 20:28 Dose: 5 mg Documented by: Potassium Chloride (Klor-Con M20) 40 meq PO ONETIME ONE Stop: 10/11/20 07:33 Last Admin: 10/11/20 08:05 Dose: 40 meq Documented by: - Patient Data Lab Results Last 24 hrs: Laboratory Results - last 24 hr 10/11/20 10/11/20 10/11/20 Range/Units 05:13 05:13 05:13 WBC 4.11 (4.0-11.0) K/uL RBC 4.44 (4.30-5.90) M/uL Hgb 15.3 (12.0-16.0) g/dL Hct 46.1 H (36.0-46.0) % MCV 103.8 H (80.0-98.0) fL MCH 34.5 H (27.0-32.0) pg MCHC 33.2 (31.0-37.0) g/dL RDW Std Deviation 54.9 (28.0-62.0) fl RDW Coeff of Saulo 14 (11.0-15.0) % Plt Count 177 (150-400) K/uL MPV 9.60 (7.40-12.00) fL Neut % (Auto) 67.2 (48.0-80.0) % Lymph % (Auto) 19.0 (16.0-40.0) % [place] % (Auto) 12.9 (0.0-15.0) % Eos % (Auto) 0.7 (0.0-7.0) % Baso % (Auto) 0.2 (0.0-1.5) % Neut # (Auto) 2.8 (1.4-5.7) K/uL Lymph # (Auto) 0.8 (0.6-2.4) K/uL [place] # (Auto) 0.5 (0.0-0.8) K/uL Eos # (Auto) 0.0 (0.0-0.7) K/uL Baso # (Auto) 0.0 (0.0-0.1) K/uL Nucleated RBC % 0.0 /100WBC Nucleated RBCs # 0 K/uL Sodium 134 L (136-145) mmol/L Potassium 3.2 L (3.5-5.1) mmol/L Chloride 98 (98-107) mmol/L Carbon Dioxide 27.2 (21.0-32.0) mmol/L BUN 26 H (7.0-18.0) mg/dL Creatinine 0.9 (0.6-1.0) mg/dL Est Cr Clr Drug Dosing TNP Estimated GFR (MDRD) 59.7 ml/min Glucose 87 (74-106) mg/dL Calcium 8.3 L (8.5-10.1) mg/dL Magnesium 1.9 (1.8-2.4) mg/dL Total Bilirubin 1.2 H (0.2-1.0) mg/dL AST 16 (15-37) IU/L ALT 15 (14-63) IU/L Alkaline Phosphatase 66 (46-116) U/L Total Protein 6.3 L (6.4-8.2) g/dL Albumin 3.0 L (3.4-5.0) g/dL Globulin 3.3 (2.6-4.0) g/dL Albumin/Globulin Ratio 0.9 (0.9-1.6) Result Diagrams: 10/11/20 05:13 10/11/20 05:13 Sepsis Event Note - Focused Exam Vital Signs: Vital Signs Temp Pulse Resp BP Pulse Ox Pulse Ox 10/11/20 23:32 36.8 C 73 16 143/81 H 93 L 10/11/20 19:00 36.6 C 82 18 132/79 94 L 10/11/20 18:00 93 L 10/11/20 15:20 36.8 C 80 20 137/80 93 L
[2020-10-11] MEDS ORDERED: OLANZapine 5 MG Tab PO ONE (19:02)
[2020-10-11] MEDS: Melatonin 3 MG Tab PO PRN (20:28)
[2020-10-11] MEDS: Pantoprazole 40 MG in Sodium Chloride 0.9% 10 ML IVPUSH SCH (20:29)
[2020-10-12] MEDS: Heparin Sodium 5,000 Units/ML Vial SUBCUT SCH ×3 (05:01→21:39)
[2020-10-12 06:47] LABS: BLOOD UREA NITROGEN,BUN 17 mg/dL (7.0-18.0); CARBON DIOXIDE,CO2 28.2 mmol/L (21.0-32.0); CHLORIDE,CL 100 mmol/L (98-107); GLUCOSE RANDOM 98 mg/dL (74-106); POTASSIUM,K 3.9 mmol/L (3.5-5.1); SODIUM,NA 137 mmol/L (136-145)
[2020-10-12] MEDS ORDERED: Polyethylene Glycol 3350 Powder 17 GM Packet PO PRN (07:58)
[2020-10-12] MEDS ORDERED: Gadobenate Dimeglumine 529 MG/ML 20 ML SDV IVPUSH STA (12:30)
[2020-10-12] MEDS ORDERED: diphenhydrAMINE 25 MG Cap PO ONE (12:46)
[2020-10-12] MEDS ORDERED: Haloperidol 5 MG Tab PO ONE (12:46)
--- NOTE | 2020-10-12 13:31 | CR ---
INDICATION: Hypoxia. TECHNIQUE: Chest 1 view. COMPARISON: Chest radiograph 10/25/2019. FINDINGS: No focal consolidation, pleural effusion, or pneumothorax. Pulmonary hyperinflation. New mild elevation of the left hemidiaphragm. Normal heart size and pulmonary vascularity. Calcified tortuous aorta. Right convex thoracic curve. IMPRESSION: 1. No acute cardiopulmonary findings. 2. Pulmonary hyperinflation. 3. New mild elevation of the left hemidiaphragm. Dictated by Jeanie Sandoval MD @ Oct 12 2020 1:27PM Signed by Dr. Jeanie Sandoval @ Oct 12 2020 1:30PM
--- NOTE | 2020-10-12 13:44 | PCM.PN ---
<Lanre Gatica - Last Filed: 10/12/20 13:40> - General Info Date of Service: 10/12/20 Subjective Update: Patients appears more alert this morning and does not appear to be having hallucinations. Per nursing, slept well overnight and ate her breakfast this morning. - Patient Data Vitals - Most Recent: Last Vital Signs Temp 36.9 C 10/12/20 11:59 Pulse 76 10/12/20 11:59 Resp 14 10/12/20 11:59 BP 123/66 10/12/20 11:59 Pulse Ox 90 L 10/12/20 11:59 Weight - Most Recent: 41.957 kg I&O - Last 24 Hours: Intake & Output 10/11/20 10/12/20 10/12/20 22:59 06:59 14:59 Intake Total 480 120 Output Total 0 Balance 480 120 Lab Results Last 24 Hours: Laboratory Results - last 24 hr 10/12/20 10/12/20 Range/Units 05:58 05:58 WBC 3.85 L (4.0-11.0) K/uL RBC 4.56 (4.30-5.90) M/uL Hgb 15.9 (12.0-16.0) g/dL Hct 46.9 H (36.0-46.0) % MCV 102.9 H (80.0-98.0) fL MCH 34.9 H (27.0-32.0) pg MCHC 33.9 (31.0-37.0) g/dL RDW Std Deviation 54.9 (28.0-62.0) fl RDW Coeff of Saulo 15 (11.0-15.0) % Plt Count 181 (150-400) K/uL MPV 10.10 (7.40-12.00) fL Neut % (Auto) 55.4 (48.0-80.0) % Lymph % (Auto) 26.5 (16.0-40.0) % [place] % (Auto) 14.8 (0.0-15.0) % Eos % (Auto) 2.3 (0.0-7.0) % Baso % (Auto) 1.0 (0.0-1.5) % Neut # (Auto) 2.1 (1.4-5.7) K/uL Lymph # (Auto) 1.0 (0.6-2.4) K/uL [place] # (Auto) 0.6 (0.0-0.8) K/uL Eos # (Auto) 0.1 (0.0-0.7) K/uL Baso # (Auto) 0.0 (0.0-0.1) K/uL Nucleated RBC % 0.0 /100WBC Nucleated RBCs # 0 K/uL Sodium 137 (136-145) mmol/L Potassium 3.9 (3.5-5.1) mmol/L Chloride 100 (98-107) mmol/L Carbon Dioxide 28.2 (21.0-32.0) mmol/L BUN 17 (7.0-18.0) mg/dL Creatinine 0.8 (0.6-1.0) mg/dL Est Cr Clr Drug Dosing TNP Estimated GFR (MDRD) > 60.0 ml/min Glucose 98 (74-106) mg/dL Calcium 8.2 L (8.5-10.1) mg/dL Magnesium 1.8 (1.8-2.4) mg/dL Total Bilirubin 0.8 (0.2-1.0) mg/dL AST 43 H (15-37) IU/L ALT 44 (14-63) IU/L Alkaline Phosphatase 155 H (46-116) U/L Total Protein 6.3 L (6.4-8.2) g/dL Albumin 2.9 L (3.4-5.0) g/dL Globulin 3.4 (2.6-4.0) g/dL Albumin/Globulin Ratio 0.9 (0.9-1.6) Med Orders - Current: Current Medications Acetaminophen (Tylenol) 650 mg PO Q4H PRN PRN Reason: Pain (Mild 1-3)/fever Heparin Sodium (Porcine) (Heparin Sodium) 5,000 units SUBCUT Q8H [facility] Last Admin: 10/12/20 05:01 Dose: 5,000 units Documented by: Pantoprazole Sodium 40 mg/ (Sodium Chloride) 10 mls @ 300 mls/hr IVPUSH DAILY@2100 [facility] Last Admin: 10/11/20 20:29 Dose: 300 mls/hr Documented by: Ketorolac Tromethamine (Toradol) 15 mg IVPUSH Q6H PRN PRN Reason: Pain Stop: 10/15/20 17:57 Last Admin: 10/11/20 01:44 Dose: 15 mg Documented by: Melatonin (Melatonin) 3 mg PO BEDTIME PRN PRN Reason: Insomnia Last Admin: 10/11/20 20:28 Dose: 3 mg Documented by: Olanzapine (Zyprexa) 5 mg PO BEDTIME [facility] Ondansetron HCl (Zofran) 4 mg IVPUSH Q4H PRN PRN Reason: Nausea Polyethylene Glycol (Miralax) 17 gm PO DAILY PRN PRN Reason: Constipation Discontinued Medications Diphenhydramine HCl (Benadryl) 25 mg PO ONCALL ONE Stop: 10/12/20 12:47 Gadobenate Dimeglumine (Multihance) 20 ml IVPUSH ONETIME STA Stop: 10/12/20 12:31 Last Admin: 10/12/20 13:30 Dose: 8 ml Documented by: Haloperidol (Haldol) 2.5 mg PO ONCALL ONE Stop: 10/12/20 12:47 Heparin Sodium (Porcine) (Heparin Sodium) 5,000 units SUBCUT Q8H [facility] Last Admin: 10/11/20 00:49 Dose: Not Given Documented by: Lactated Ringer's (Ringers, Lactated) 1,000 mls @ 75 mls/hr IV ASDIRECTED [facility] Stop: 10/11/20 08:19 Last Admin: 10/10/20 21:34 Dose: 75 mls/hr Documented by: Pantoprazole Sodium 40 mg/ (Sodium Chloride) 10 mls @ 300 mls/hr IVPUSH DAILY [facility] Last Admin: 10/11/20 00:49 Dose: Not Given Documented by: Olanzapine (Zyprexa) 5 mg PO ONETIME ONE Stop: 10/11/20 19:03 Last Admin: 10/11/20 20:28 Dose: 5 mg Documented by: Potassium Chloride (Klor-Con M20) 40 meq PO ONETIME ONE Stop: 10/11/20 07:33 Last Admin: 10/11/20 08:05 Dose: 40 meq Documented by: - Exam General: Alert, Cooperative, No Acute Distress. No: Oriented Lungs: Clear to Auscultation, Normal Respiratory Effort Cardiovascular: Regular Rate, Regular Rhythm GI/Abdominal Exam: Normal Bowel Sounds, Soft, Non-Tender, No Distention Extremities: Normal Inspection, No Pedal Edema - Patient Data Lab Results Last 24 hrs: Laboratory Results - last 24 hr 10/12/20 10/12/20 Range/Units 05:58 05:58 WBC 3.85 L (4.0-11.0) K/uL RBC 4.56 (4.30-5.90) M/uL Hgb 15.9 (12.0-16.0) g/dL Hct 46.9 H (36.0-46.0) % MCV 102.9 H (80.0-98.0) fL MCH 34.9 H (27.0-32.0) pg MCHC 33.9 (31.0-37.0) g/dL RDW Std Deviation 54.9 (28.0-62.0) fl RDW Coeff of Saulo 15 (11.0-15.0) % Plt Count 181 (150-400) K/uL MPV 10.10 (7.40-12.00) fL Neut % (Auto) 55.4 (48.0-80.0) % Lymph % (Auto) 26.5 (16.0-40.0) % [place] % (Auto) 14.8 (0.0-15.0) % Eos % (Auto) 2.3 (0.0-7.0) % Baso % (Auto) 1.0 (0.0-1.5) % Neut # (Auto) 2.1 (1.4-5.7) K/uL Lymph # (Auto) 1.0 (0.6-2.4) K/uL [place] # (Auto) 0.6 (0.0-0.8) K/uL Eos # (Auto) 0.1 (0.0-0.7) K/uL Baso # (Auto) 0.0 (0.0-0.1) K/uL Nucleated RBC % 0.0 /100WBC Nucleated RBCs # 0 K/uL Sodium 137 (136-145) mmol/L Potassium 3.9 (3.5-5.1) mmol/L Chloride 100 (98-107) mmol/L Carbon Dioxide 28.2 (21.0-32.0) mmol/L BUN 17 (7.0-18.0) mg/dL Creatinine 0.8 (0.6-1.0) mg/dL Est Cr Clr Drug Dosing TNP Estimated GFR (MDRD) > 60.0 ml/min Glucose 98 (74-106) mg/dL Calcium 8.2 L (8.5-10.1) mg/dL Magnesium 1.8 (1.8-2.4) mg/dL Total Bilirubin 0.8 (0.2-1.0) mg/dL AST 43 H (15-37) IU/L ALT 44 (14-63) IU/L Alkaline Phosphatase 155 H (46-116) U/L Total Protein 6.3 L (6.4-8.2) g/dL Albumin 2.9 L (3.4-5.0) g/dL Globulin 3.4 (2.6-4.0) g/dL Albumin/Globulin Ratio 0.9 (0.9-1.6) Result Diagrams: 10/12/20 05:58 10/12/20 05:58 Sepsis Event Note - Evaluation Sepsis Screening Result: No Definite Risk - Focused Exam Vital Signs: Vital Signs Temp Pulse Resp BP Pulse Ox 10/12/20 11:59 36.9 C 76 14 123/66 90 L 10/12/20 10:30 36.4 C 75 16 122/61 94 L 10/12/20 04:35 36.3 C 64 17 135/69 94 L - Problem List & Annotations (1) AMS (altered mental status) SNOMED Code(s): 876403891 Code(s): R41.82 - ALTERED MENTAL STATUS, UNSPECIFIED Status: Acute (2) Ambulatory dysfunction SNOMED Code(s): 661540118 Code(s): R26.2 - DIFFICULTY IN WALKING, NOT ELSEWHERE CLASSIFIED Status: Acute (3) Hypothyroidism SNOMED Code(s): 22432290 Code(s): E03.9 - HYPOTHYROIDISM, UNSPECIFIED Status: Acute (4) Fracture of second lumbar vertebra SNOMED Code(s): 891414550, 655976474 Code(s): S32.029A - UNSP FRACTURE OF SECOND LUMBAR VERTEBRA, INIT FOR CLOS FX Status: Acute Qualifiers: Encounter type: initial encounter Fracture type: closed (5) Hypokalemia SNOMED Code(s): 39289247 Code(s): E87.6 - HYPOKALEMIA Status: Acute - Problem List Review Problem List Initiated/Reviewed/Updated: Yes - My Orders Last 24 Hours: My Active Orders 10/12/20 07:58 polyethylene glycoL 3350 [MiraLAX] 17 gm PO DAILY PRN - Plan Plan:: Assessment and Plan: 1. Altered mental status: - Mentation appears to have improved this morning since yesterday. Will order MRI. Start zyprexa 5mg qd. Will order speech evaluation. Consider outpatient [id number]. - Tramadol held on admission. - UA did not show signs of infection. - CT head showed no acute findings. 2. Ambulatory dysfunction: - PT consulted. 3. Fracture of L2 vertebrae: - PT consulted. For pain, Tylenol prn and Toradol prn. 4. Hypokalemia, resolved. 5. Hypothyroidism: - TSH was 0.26. Will start reduced dose of levothyroxine 50 mcg qd. 6. DVT prophylaxis: - Heparin 5, 000 units subcut q8h. 7. Disposition: - Family seeking NH placement. <Román Browning - Last Filed: 10/18/20 21:28> - General Info Subjective Update: I have seen and evaluated the patient. I have discussed findings and treatment plan with resident. I agree with the assessment and plan in the following note. - Patient Data Vitals - Most Recent: Last Vital Signs Temp 36.5 C 10/17/20 09:00 Pulse 64 10/17/20 09:00 Resp 16 10/17/20 09:00 BP 125/60 10/17/20 09:00 Pulse Ox 91 L 10/17/20 09:00 Med Orders - Current: Current Medications Discontinued Medications Acetaminophen (Tylenol) 650 mg PO Q4H PRN PRN Reason: Pain (Mild 1-3)/fever Last Admin: 10/15/20 20:08 Dose: 650 mg Documented by: Diphenhydramine HCl (Benadryl) 25 mg PO ONCALL ONE Stop: 10/12/20 12:47 Last Admin: 10/12/20 15:34 Dose: Not Given Documented by: Folic Acid (Folic Acid) 1 mg SUBCUT DAILY [facility] Last Admin: 10/17/20 08:26 Dose: 1 mg Documented by: Gadobenate Dimeglumine (Multihance) 20 ml IVPUSH ONETIME STA Stop: 10/12/20 12:31 Last Admin: 10/12/20 13:30 Dose: 8 ml Documented by: Haloperidol (Haldol) 2.5 mg PO ONCALL ONE Stop: 10/12/20 12:47 Last Admin: 10/12/20 15:34 Dose: Not Given Documented by: Heparin Sodium (Porcine) (Heparin Sodium) 5,000 units SUBCUT Q8H [facility] Last Admin: 10/11/20 00:49 Dose: Not Given Documented by: Heparin Sodium (Porcine) (Heparin Sodium) 5,000 units SUBCUT Q8H [facility] Last Admin: 10/17/20 04:41 Dose: 5,000 units Documented by: Lactated Ringer's (Ringers, Lactated) 1,000 mls @ 75 mls/hr IV ASDIRECTED [facility] Stop: 10/11/20 08:19 Last Admin: 10/10/20 21:34 Dose: 75 mls/hr Documented by: Pantoprazole Sodium 40 mg/ (Sodium Chloride) 10 mls @ 300 mls/hr IVPUSH DAILY [facility] Last Admin: 10/11/20 00:49 Dose: Not Given Documented by: Pantoprazole Sodium 40 mg/ (Sodium Chloride) 10 mls @ 300 mls/hr IVPUSH DAILY@2100 [facility] Last Admin: 10/16/20 20:43 Dose: 300 mls/hr Documented by: Thiamine HCl 100 mg/ Sodium (Chloride) 101 mls @ 202 mls/hr IV DAILY [facility] Last Admin: 10/17/20 09:19 Dose: 202 mls/hr Documented by: Ketorolac Tromethamine (Toradol) 15 mg IVPUSH Q6H PRN PRN Reason: Pain Stop: 10/15/20 17:57 Last Admin: 10/14/20 17:22 Dose: 15 mg Documented by: Levothyroxine Sodium (Synthroid) 50 mcg PO ACBREAKFAST [facility] Last Admin: 10/17/20 06:52 Dose: 50 mcg Documented by: Melatonin (Melatonin) 3 mg PO BEDTIME PRN PRN Reason: Insomnia Last Admin: 10/15/20 20:08 Dose: 3 mg Documented by: Olanzapine (Zyprexa) 5 mg PO ONETIME ONE Stop: 10/11/20 19:03 Last Admin: 10/11/20 20:28 Dose: 5 mg Documented by: Olanzapine (Zyprexa) 5 mg PO BEDTIME [facility]USAN Last Admin: 10/16/20 20:43 Dose: 5 mg Documented by: Ondansetron HCl (Zofran) 4 mg IVPUSH Q4H PRN PRN Reason: Nausea Polyethylene Glycol (Miralax) 17 gm PO DAILY PRN PRN Reason: Constipation Last Admin: 10/12/20 19:10 Dose: 17 gm Documented by: Potassium Chloride (Klor-Con M20) 40 meq PO ONETIME ONE Stop: 10/11/20 07:33 Last Admin: 10/11/20 08:05 Dose: 40 meq Documented by: - Patient Data Result Diagrams: 10/15/20 05:38 10/15/20 05:38
--- NOTE | 2020-10-12 14:40 | MR ---
INDICATION: Confusion. TECHNIQUE: Multiplanar multisequence MR imaging was acquired through the brain prior to and following intravenous contrast. COMPARISON: CT brain 10/06/2020. FINDINGS: Motion artifact significantly degrades multiple sequences. Prominence of the ventricles and sulci compatible with mild to moderate diffuse cerebral volume loss. No mass effect or midline shift. Scattered and patchy T2 FLAIR hyperintensities in the supratentorial white matter, typical for sequelae of [id number]-vrbgqsfx chronic microvascular ischemic changes. Small apparent T2 FLAIR hyperintense signal abnormality within the anteroinferior right temporal lobe (series 501, image 10), not definitively corroborated on additional sequences. No diffusion restriction to suggest acute infarction. No recent intracranial hemorrhage or pathologic extra-axial fluid collection. No large pathologic intracranial enhancement within exam limitations. The major arterial flow voids of the skullbase are preserved. Thinning of the ocular lenses. The paranasal sinuses are well aerated. The mastoid air cells are clear. IMPRESSION: 1. Motion artifact significantly degrades multiple sequences. 2. No acute infarction, intracranial mass effect, or recent hemorrhage. 3. Rrec-pl-iainmbyr chronic microvascular ischemic changes and diffuse cerebral volume loss. 4. Small apparent T2 FLAIR hyperintense signal abnormality involving the anteroinferior right temporal lobe may be artifactual, though sequelae of locally advanced chronic microvascular ischemic change or chronic infarction could also be considered. Dictated by Tho De Santiago MD @ Oct 12 2020 2:23PM Signed by Dr. Tho De Santiago @ Oct 12 2020 2:39PM
[2020-10-12] MEDS: OLANZapine 5 MG Tab PO SCH (21:34)
[2020-10-12] MEDS: Pantoprazole 40 MG in Sodium Chloride 0.9% 10 ML IVPUSH SCH (21:39)
[2020-10-13] MEDS: Heparin Sodium 5,000 Units/ML Vial SUBCUT SCH ×3 (04:23→20:28)
[2020-10-13 05:50] LABS: BLOOD UREA NITROGEN,BUN 15 mg/dL (7.0-18.0); CHLORIDE,CL 102 mmol/L (98-107); GLUCOSE RANDOM 98 mg/dL (74-106); POTASSIUM,K 3.9 mmol/L (3.5-5.1); SODIUM,NA 137 mmol/L (136-145)
[2020-10-13] MEDS: Levothyroxine 50 MCG Tab PO SCH (08:29)
--- NOTE | 2020-10-13 10:06 | PCM.PN ---
- General Info Date of Service: 10/13/20 Subjective Update: Patient sleeping at bedside this morning. No acute distress. Per nursing, slept well overnight, urinated and ate well yesterday. - Patient Data Vitals - Most Recent: Last Vital Signs Temp 36.6 C 10/13/20 08:38 Pulse 66 10/13/20 08:38 Resp 20 10/13/20 08:38 BP 126/60 10/13/20 08:38 Pulse Ox 95 10/13/20 08:38 Weight - Most Recent: 41.957 kg I&O - Last 24 Hours: Intake & Output 10/12/20 10/13/20 10/13/20 22:59 06:59 14:59 Intake Total 50 280 Output Total 0 380 Balance 50 -100 Lab Results Last 24 Hours: Laboratory Results - last 24 hr 10/12/20 10/13/20 10/13/20 Range/Units 21:00 04:54 04:54 WBC 5.27 (4.0-11.0) K/uL RBC 4.40 (4.30-5.90) M/uL Hgb 15.4 (12.0-16.0) g/dL Hct 45.5 (36.0-46.0) % MCV 103.4 H (80.0-98.0) fL MCH 35.0 H (27.0-32.0) pg MCHC 33.8 (31.0-37.0) g/dL RDW Std Deviation 56.2 (28.0-62.0) fl RDW Coeff of Saulo 15 (11.0-15.0) % Plt Count 190 (150-400) K/uL MPV 9.60 (7.40-12.00) fL Neut % (Auto) 56.4 (48.0-80.0) % Lymph % (Auto) 28.7 (16.0-40.0) % [place] % (Auto) 13.5 (0.0-15.0) % Eos % (Auto) 0.8 (0.0-7.0) % Baso % (Auto) 0.6 (0.0-1.5) % Neut # (Auto) 3.0 (1.4-5.7) K/uL Lymph # (Auto) 1.5 (0.6-2.4) K/uL [place] # (Auto) 0.7 (0.0-0.8) K/uL Eos # (Auto) 0.0 (0.0-0.7) K/uL Baso # (Auto) 0.0 (0.0-0.1) K/uL Nucleated RBC % 0.0 /100WBC Nucleated RBCs # 0 K/uL Sodium 137 (136-145) mmol/L Potassium 3.9 (3.5-5.1) mmol/L Chloride 102 (98-107) mmol/L Carbon Dioxide 28.0 (21.0-32.0) mmol/L BUN 15 (7.0-18.0) mg/dL Creatinine 0.8 (0.6-1.0) mg/dL Est Cr Clr Drug Dosing TNP Estimated GFR (MDRD) > 60.0 ml/min Glucose 98 (74-106) mg/dL Calcium 8.1 L (8.5-10.1) mg/dL Total Bilirubin 0.6 (0.2-1.0) mg/dL AST 20 (15-37) IU/L ALT 31 (14-63) IU/L Alkaline Phosphatase 128 H (46-116) U/L Total Protein 6.1 L (6.4-8.2) g/dL Albumin 2.7 L (3.4-5.0) g/dL Globulin 3.4 (2.6-4.0) g/dL Albumin/Globulin Ratio 0.8 L (0.9-1.6) Urine Color DARK YELLOW Urine Appearance SLT CLOUDY Urine pH 5.5 (5.0-8.0) Ur Specific [place] 1.025 (1.001-1.035) Urine Protein NEGATIVE (NEGATIVE) mg/dL Urine Glucose (UA) NEGATIVE (NEGATIVE) mg/dL Urine Ketones NEGATIVE (NEGATIVE) mg/dL Urine Occult Blood NEGATIVE (NEGATIVE) Urine Nitrite NEGATIVE (NEGATIVE) Urine Bilirubin SMALL H (NEGATIVE) Urine Ictotest NEGATIVE Urine Urobilinogen 1.0 (<2.0) EU/dL Ur Leukocyte Esterase TRACE H (NEGATIVE) Urine RBC 0-2 (0-2/HPF) Urine WBC 3-5 (0-5/HPF) Ur Epithelial Cells MANY (NONE-FEW) Amorphous Sediment LIGHT (NEGATIVE) Urine Bacteria 1+ H (NEGATIVE) Urine Mucus MODERATE (NONE-MOD) Med Orders - Current: Current Medications Acetaminophen (Tylenol) 650 mg PO Q4H PRN PRN Reason: Pain (Mild 1-3)/fever Folic Acid (Folic Acid) 1 mg SUBCUT DAILY [facility] Heparin Sodium (Porcine) (Heparin Sodium) 5,000 units SUBCUT Q8H [facility] Last Admin: 10/13/20 04:23 Dose: 5,000 units Documented by: Pantoprazole Sodium 40 mg/ (Sodium Chloride) 10 mls @ 300 mls/hr IVPUSH DAILY@2100 [facility] Last Admin: 10/12/20 21:39 Dose: 300 mls/hr Documented by: Thiamine HCl 100 mg/ Sodium (Chloride) 101 mls @ 202 mls/hr IV DAILY [facility] Ketorolac Tromethamine (Toradol) 15 mg IVPUSH Q6H PRN PRN Reason: Pain Stop: 10/15/20 17:57 Last Admin: 10/11/20 01:44 Dose: 15 mg Documented by: Levothyroxine Sodium (Synthroid) 50 mcg PO ACBREAKFAST [facility] Last Admin: 10/13/20 08:29 Dose: 50 mcg Documented by: Melatonin (Melatonin) 3 mg PO BEDTIME PRN PRN Reason: Insomnia Last Admin: 10/11/20 20:28 Dose: 3 mg Documented by: Olanzapine (Zyprexa) 5 mg PO BEDTIME [facility] Last Admin: 10/12/20 21:34 Dose: 5 mg Documented by: Ondansetron HCl (Zofran) 4 mg IVPUSH Q4H PRN PRN Reason: Nausea Polyethylene Glycol (Miralax) 17 gm PO DAILY PRN PRN Reason: Constipation Last Admin: 10/12/20 19:10 Dose: 17 gm Documented by: Discontinued Medications Diphenhydramine HCl (Benadryl) 25 mg PO ONCALL ONE Stop: 10/12/20 12:47 Last Admin: 10/12/20 15:34 Dose: Not Given Documented by: Gadobenate Dimeglumine (Multihance) 20 ml IVPUSH ONETIME STA Stop: 10/12/20 12:31 Last Admin: 10/12/20 13:30 Dose: 8 ml Documented by: Haloperidol (Haldol) 2.5 mg PO ONCALL ONE Stop: 10/12/20 12:47 Last Admin: 10/12/20 15:34 Dose: Not Given Documented by: Heparin Sodium (Porcine) (Heparin Sodium) 5,000 units SUBCUT Q8H [facility] Last Admin: 10/11/20 00:49 Dose: Not Given Documented by: Lactated Ringer's (Ringers, Lactated) 1,000 mls @ 75 mls/hr IV ASDIRECTED [facility] Stop: 10/11/20 08:19 Last Admin: 10/10/20 21:34 Dose: 75 mls/hr Documented by: Pantoprazole Sodium 40 mg/ (Sodium Chloride) 10 mls @ 300 mls/hr IVPUSH DAILY [facility] Last Admin: 10/11/20 00:49 Dose: Not Given Documented by: Olanzapine (Zyprexa) 5 mg PO ONETIME ONE Stop: 10/11/20 19:03 Last Admin: 10/11/20 20:28 Dose: 5 mg Documented by: Potassium Chloride (Klor-Con M20) 40 meq PO ONETIME ONE Stop: 10/11/20 07:33 Last Admin: 10/11/20 08:05 Dose: 40 meq Documented by: - Exam General: Alert, Cooperative. No: Oriented Lungs: Clear to Auscultation, Normal Respiratory Effort Cardiovascular: Regular Rate, Regular Rhythm GI/Abdominal Exam: Normal Bowel Sounds, Soft, Non-Tender, No Distention Extremities: Normal Inspection, No Pedal Edema - Patient Data Lab Results Last 24 hrs: Laboratory Results - last 24 hr 10/12/20 10/13/20 10/13/20 Range/Units 21:00 04:54 04:54 WBC 5.27 (4.0-11.0) K/uL RBC 4.40 (4.30-5.90) M/uL Hgb 15.4 (12.0-16.0) g/dL Hct 45.5 (36.0-46.0) % MCV 103.4 H (80.0-98.0) fL MCH 35.0 H (27.0-32.0) pg MCHC 33.8 (31.0-37.0) g/dL RDW Std Deviation 56.2 (28.0-62.0) fl RDW Coeff of Saulo 15 (11.0-15.0) % Plt Count 190 (150-400) K/uL MPV 9.60 (7.40-12.00) fL Neut % (Auto) 56.4 (48.0-80.0) % Lymph % (Auto) 28.7 (16.0-40.0) % [place] % (Auto) 13.5 (0.0-15.0) % Eos % (Auto) 0.8 (0.0-7.0) % Baso % (Auto) 0.6 (0.0-1.5) % Neut # (Auto) 3.0 (1.4-5.7) K/uL Lymph # (Auto) 1.5 (0.6-2.4) K/uL [place] # (Auto) 0.7 (0.0-0.8) K/uL Eos # (Auto) 0.0 (0.0-0.7) K/uL Baso # (Auto) 0.0 (0.0-0.1) K/uL Nucleated RBC % 0.0 /100WBC Nucleated RBCs # 0 K/uL Sodium 137 (136-145) mmol/L Potassium 3.9 (3.5-5.1) mmol/L Chloride 102 (98-107) mmol/L Carbon Dioxide 28.0 (21.0-32.0) mmol/L BUN 15 (7.0-18.0) mg/dL Creatinine 0.8 (0.6-1.0) mg/dL Est Cr Clr Drug Dosing TNP Estimated GFR (MDRD) > 60.0 ml/min Glucose 98 (74-106) mg/dL Calcium 8.1 L (8.5-10.1) mg/dL Total Bilirubin 0.6 (0.2-1.0) mg/dL AST 20 (15-37) IU/L ALT 31 (14-63) IU/L Alkaline Phosphatase 128 H (46-116) U/L Total Protein 6.1 L (6.4-8.2) g/dL Albumin 2.7 L (3.4-5.0) g/dL Globulin 3.4 (2.6-4.0) g/dL Albumin/Globulin Ratio 0.8 L (0.9-1.6) Urine Color DARK YELLOW Urine Appearance SLT CLOUDY Urine pH 5.5 (5.0-8.0) Ur Specific [place] 1.025 (1.001-1.035) Urine Protein NEGATIVE (NEGATIVE) mg/dL Urine Glucose (UA) NEGATIVE (NEGATIVE) mg/dL Urine Ketones NEGATIVE (NEGATIVE) mg/dL Urine Occult Blood NEGATIVE (NEGATIVE) Urine Nitrite NEGATIVE (NEGATIVE) Urine Bilirubin SMALL H (NEGATIVE) Urine Ictotest NEGATIVE Urine Urobilinogen 1.0 (<2.0) EU/dL Ur Leukocyte Esterase TRACE H (NEGATIVE) Urine RBC 0-2 (0-2/HPF) Urine WBC 3-5 (0-5/HPF) Ur Epithelial Cells MANY (NONE-FEW) Amorphous Sediment LIGHT (NEGATIVE) Urine Bacteria 1+ H (NEGATIVE) Urine Mucus MODERATE (NONE-MOD) Result Diagrams: 10/13/20 04:54 10/13/20 04:54 Sepsis Event Note - Evaluation Sepsis Screening Result: No Definite Risk - Focused Exam Vital Signs: Vital Signs Temp Pulse Resp BP Pulse Ox 10/13/20 08:38 36.6 C 66 20 126/60 95 10/13/20 03:33 36.2 C 66 17 138/58 L 92 L 10/12/20 23:42 36.4 C 67 18 130/63 92 L - Problem List & Annotations (1) AMS (altered mental status) SNOMED Code(s): 063222684 Code(s): R41.82 - ALTERED MENTAL STATUS, UNSPECIFIED Status: Acute Current Visit: Yes (2) Ambulatory dysfunction SNOMED Code(s): 695802229 Code(s): R26.2 - DIFFICULTY IN WALKING, NOT ELSEWHERE CLASSIFIED Status: Acute Current Visit: Yes (3) Hypothyroidism SNOMED Code(s): 48467785 Code(s): E03.9 - HYPOTHYROIDISM, UNSPECIFIED Status: Acute Current Visit: Yes (4) Fracture of second lumbar vertebra SNOMED Code(s): 790372486, 830824713 Code(s): S32.029A - UNSP FRACTURE OF SECOND LUMBAR VERTEBRA, INIT FOR CLOS FX Status: Acute Current Visit: No Qualifiers: Encounter type: initial encounter Fracture type: closed (5) Hypokalemia SNOMED Code(s): 48564408 Code(s): E87.6 - HYPOKALEMIA Status: Acute Current Visit: Yes - Problem List Review Problem List Initiated/Reviewed/Updated: Yes - My Orders Last 24 Hours: My Active Orders 10/12/20 19:08 Bladder Scan [RC] ASDIRECTED RT Incentive Spirometry [RC] ASDIRECTED 10/13/20 07:19 Intake and Output Strict [RC] Q12H 10/13/20 07:30 Levothyroxine [Synthroid] 50 mcg PO ACBREAKFAST 10/14/20 05:11 CBC WITH AUTO DIFF [HEME] AM CMP [COMPREHENSIVE METABOLIC PN,CMP] [CHEM] AM - Plan Plan:: Assessment and Plan: 1. Altered mental status, improving: - MRI brain showed no acute infarction. There was [id number] chronic microvascular ischemic changes and diffuse cerebral volume loss. Will continue zyprexa 5mg qd. Recommend outpatient [id number]. - Family reports history of alcohol use, will thiamine supplement. - Tramadol held on admission. - UA did not show signs of infection. - CT head showed no acute findings. 2. Ambulatory dysfunction: - PT consulted. 3. Fracture of L2 vertebrae: - PT consulted. For pain, Tylenol prn and Toradol prn. 4. Hypothyroidism: - Continue levothyroxine 50 mcg qd. 5. DVT prophylaxis: - Heparin 5, 000 units subcut q8h. 6. Disposition: - Family seeking NH placement.
[2020-10-13] MEDS: Folic Acid 50 MG/10 ML MDV SUBCUT SCH (10:14)
[2020-10-13] MEDS: Thiamine 100 MG in Sodium Chloride 0.9% 100 ML IV SCH (10:39)
[2020-10-13] MEDS: Acetaminophen 325 MG Tab PO PRN (20:14)
[2020-10-13] MEDS: Pantoprazole 40 MG in Sodium Chloride 0.9% 10 ML IVPUSH SCH (20:24)
[2020-10-13] MEDS: OLANZapine 5 MG Tab PO SCH (20:29)
[2020-10-14] MEDS: Heparin Sodium 5,000 Units/ML Vial SUBCUT SCH ×3 (05:10→20:53)
[2020-10-14 06:30] LABS: BLOOD UREA NITROGEN,BUN 19 mg/dL (7.0-18.0); CARBON DIOXIDE,CO2 29.7 mmol/L (21.0-32.0); CHLORIDE,CL 102 mmol/L (98-107); GLUCOSE RANDOM 94 mg/dL (74-106); POTASSIUM,K 3.8 mmol/L (3.5-5.1); SODIUM,NA 137 mmol/L (136-145)
--- NOTE | 2020-10-14 08:08 | PCM.PN ---
- General Info Date of Service: 10/14/20 Subjective Update: Sleeping at bedside this morning. No distress noted. Normal respiratory effort. Per nursing, patient does not drink much water, slept well throughout the night and ate her food yesterday. - Patient Data Vitals - Most Recent: Last Vital Signs Temp 36.6 C 10/14/20 03:56 Pulse 65 10/14/20 03:56 Resp 16 10/14/20 03:56 BP 112/55 L 10/14/20 03:56 Pulse Ox 95 10/14/20 03:56 Weight - Most Recent: 41.957 kg I&O - Last 24 Hours: Intake & Output 10/13/20 10/14/20 10/14/20 22:59 06:59 14:59 Intake Total 240 150 Output Total 600 300 Balance -360 -150 Lab Results Last 24 Hours: Laboratory Results - last 24 hr 10/14/20 10/14/20 Range/Units 05:43 05:43 WBC 5.96 (4.0-11.0) K/uL RBC 4.22 L (4.30-5.90) M/uL Hgb 14.7 (12.0-16.0) g/dL Hct 44.1 (36.0-46.0) % MCV 104.5 H (80.0-98.0) fL MCH 34.8 H (27.0-32.0) pg MCHC 33.3 (31.0-37.0) g/dL RDW Std Deviation 56.9 (28.0-62.0) fl RDW Coeff of Saulo 15 (11.0-15.0) % Plt Count 219 (150-400) K/uL MPV 9.80 (7.40-12.00) fL Neut % (Auto) 62.0 (48.0-80.0) % Lymph % (Auto) 25.3 (16.0-40.0) % [place] % (Auto) 11.1 (0.0-15.0) % Eos % (Auto) 1.3 (0.0-7.0) % Baso % (Auto) 0.3 (0.0-1.5) % Neut # (Auto) 3.7 (1.4-5.7) K/uL Lymph # (Auto) 1.5 (0.6-2.4) K/uL [place] # (Auto) 0.7 (0.0-0.8) K/uL Eos # (Auto) 0.1 (0.0-0.7) K/uL Baso # (Auto) 0.0 (0.0-0.1) K/uL Nucleated RBC % 0.0 /100WBC Nucleated RBCs # 0 K/uL Sodium 137 (136-145) mmol/L Potassium 3.8 (3.5-5.1) mmol/L Chloride 102 (98-107) mmol/L Carbon Dioxide 29.7 (21.0-32.0) mmol/L BUN 19 H (7.0-18.0) mg/dL Creatinine 1.0 (0.6-1.0) mg/dL Est Cr Clr Drug Dosing TNP Estimated GFR (MDRD) 52.8 ml/min Glucose 94 (74-106) mg/dL Calcium 8.3 L (8.5-10.1) mg/dL Total Bilirubin 0.5 (0.2-1.0) mg/dL AST 13 L (15-37) IU/L ALT 23 (14-63) IU/L Alkaline Phosphatase 112 (46-116) U/L Total Protein 6.0 L (6.4-8.2) g/dL Albumin 2.6 L (3.4-5.0) g/dL Globulin 3.4 (2.6-4.0) g/dL Albumin/Globulin Ratio 0.8 L (0.9-1.6) Med Orders - Current: Current Medications Acetaminophen (Tylenol) 650 mg PO Q4H PRN PRN Reason: Pain (Mild 1-3)/fever Last Admin: 10/13/20 20:14 Dose: 650 mg Documented by: Folic Acid (Folic Acid) 1 mg SUBCUT DAILY [facility] Last Admin: 10/13/20 10:14 Dose: 1 mg Documented by: Heparin Sodium (Porcine) (Heparin Sodium) 5,000 units SUBCUT Q8H [facility] Last Admin: 10/14/20 05:10 Dose: 5,000 units Documented by: Pantoprazole Sodium 40 mg/ (Sodium Chloride) 10 mls @ 300 mls/hr IVPUSH DAILY@2100 [facility] Last Admin: 10/13/20 20:24 Dose: 300 mls/hr Documented by: Thiamine HCl 100 mg/ Sodium (Chloride) 101 mls @ 202 mls/hr IV DAILY [facility] Last Admin: 10/13/20 10:39 Dose: 202 mls/hr Documented by: Ketorolac Tromethamine (Toradol) 15 mg IVPUSH Q6H PRN PRN Reason: Pain Stop: 10/15/20 17:57 Last Admin: 10/11/20 01:44 Dose: 15 mg Documented by: Levothyroxine Sodium (Synthroid) 50 mcg PO ACBREAKFAST [facility] Last Admin: 10/13/20 08:29 Dose: 50 mcg Documented by: Melatonin (Melatonin) 3 mg PO BEDTIME PRN PRN Reason: Insomnia Last Admin: 10/11/20 20:28 Dose: 3 mg Documented by: Olanzapine (Zyprexa) 5 mg PO BEDTIME [facility] Last Admin: 10/13/20 20:29 Dose: 5 mg Documented by: Ondansetron HCl (Zofran) 4 mg IVPUSH Q4H PRN PRN Reason: Nausea Polyethylene Glycol (Miralax) 17 gm PO DAILY PRN PRN Reason: Constipation Last Admin: 10/12/20 19:10 Dose: 17 gm Documented by: Discontinued Medications Diphenhydramine HCl (Benadryl) 25 mg PO ONCALL ONE Stop: 10/12/20 12:47 Last Admin: 10/12/20 15:34 Dose: Not Given Documented by: Gadobenate Dimeglumine (Multihance) 20 ml IVPUSH ONETIME [facility] Stop: 10/12/20 12:31 Last Admin: 10/12/20 13:30 Dose: 8 ml Documented by: Haloperidol (Haldol) 2.5 mg PO ONCALL ONE Stop: 10/12/20 12:47 Last Admin: 10/12/20 15:34 Dose: Not Given Documented by: Heparin Sodium (Porcine) (Heparin Sodium) 5,000 units SUBCUT Q8H [facility] Last Admin: 10/11/20 00:49 Dose: Not Given Documented by: Lactated Ringer's (Ringers, Lactated) 1,000 mls @ 75 mls/hr IV ASDIRECTED [facility] Stop: 10/11/20 08:19 Last Admin: 10/10/20 21:34 Dose: 75 mls/hr Documented by: Pantoprazole Sodium 40 mg/ (Sodium Chloride) 10 mls @ 300 mls/hr IVPUSH DAILY [facility] Last Admin: 10/11/20 00:49 Dose: Not Given Documented by: Olanzapine (Zyprexa) 5 mg PO ONETIME ONE Stop: 10/11/20 19:03 Last Admin: 10/11/20 20:28 Dose: 5 mg Documented by: Potassium Chloride (Klor-Con M20) 40 meq PO ONETIME ONE Stop: 10/11/20 07:33 Last Admin: 10/11/20 08:05 Dose: 40 meq Documented by: - Exam General: Other (Sleeping at bedside this AM, no distress noted.) Lungs: Clear to Auscultation, Normal Respiratory Effort Cardiovascular: Regular Rate, Regular Rhythm GI/Abdominal Exam: Normal Bowel Sounds, Soft, Non-Tender, No Distention Extremities: Normal Inspection, No Pedal Edema - Patient Data Lab Results Last 24 hrs: Laboratory Results - last 24 hr 10/14/20 10/14/20 Range/Units 05:43 05:43 WBC 5.96 (4.0-11.0) K/uL RBC 4.22 L (4.30-5.90) M/uL Hgb 14.7 (12.0-16.0) g/dL Hct 44.1 (36.0-46.0) % MCV 104.5 H (80.0-98.0) fL MCH 34.8 H (27.0-32.0) pg MCHC 33.3 (31.0-37.0) g/dL RDW Std Deviation 56.9 (28.0-62.0) fl RDW Coeff of Saulo 15 (11.0-15.0) % Plt Count 219 (150-400) K/uL MPV 9.80 (7.40-12.00) fL Neut % (Auto) 62.0 (48.0-80.0) % Lymph % (Auto) 25.3 (16.0-40.0) % [place] % (Auto) 11.1 (0.0-15.0) % Eos % (Auto) 1.3 (0.0-7.0) % Baso % (Auto) 0.3 (0.0-1.5) % Neut # (Auto) 3.7 (1.4-5.7) K/uL Lymph # (Auto) 1.5 (0.6-2.4) K/uL [place] # (Auto) 0.7 (0.0-0.8) K/uL Eos # (Auto) 0.1 (0.0-0.7) K/uL Baso # (Auto) 0.0 (0.0-0.1) K/uL Nucleated RBC % 0.0 /100WBC Nucleated RBCs # 0 K/uL Sodium 137 (136-145) mmol/L Potassium 3.8 (3.5-5.1) mmol/L Chloride 102 (98-107) mmol/L Carbon Dioxide 29.7 (21.0-32.0) mmol/L BUN 19 H (7.0-18.0) mg/dL Creatinine 1.0 (0.6-1.0) mg/dL Est Cr Clr Drug Dosing TNP Estimated GFR (MDRD) 52.8 ml/min Glucose 94 (74-106) mg/dL Calcium 8.3 L (8.5-10.1) mg/dL Total Bilirubin 0.5 (0.2-1.0) mg/dL AST 13 L (15-37) IU/L ALT 23 (14-63) IU/L Alkaline Phosphatase 112 (46-116) U/L Total Protein 6.0 L (6.4-8.2) g/dL Albumin 2.6 L (3.4-5.0) g/dL Globulin 3.4 (2.6-4.0) g/dL Albumin/Globulin Ratio 0.8 L (0.9-1.6) Result Diagrams: 10/14/20 05:43 10/14/20 05:43 Sepsis Event Note - Evaluation Sepsis Screening Result: No Definite Risk - Focused Exam Vital Signs: Vital Signs Temp Pulse Resp BP Pulse Ox 10/14/20 03:56 36.6 C 65 16 112/55 L 95 10/14/20 00:00 36.4 C 65 18 104/74 94 L - Problem List & Annotations (1) AMS (altered mental status) SNOMED Code(s): 709280658 Code(s): R41.82 - ALTERED MENTAL STATUS, UNSPECIFIED Status: Acute Current Visit: Yes (2) Ambulatory dysfunction SNOMED Code(s): 083132359 Code(s): R26.2 - DIFFICULTY IN WALKING, NOT ELSEWHERE CLASSIFIED Status: Acute Current Visit: Yes (3) Hypothyroidism SNOMED Code(s): 53165302 Code(s): E03.9 - HYPOTHYROIDISM, UNSPECIFIED Status: Acute Current Visit: Yes (4) Fracture of second lumbar vertebra SNOMED Code(s): 776230970, 806337008 Code(s): S32.029A - UNSP FRACTURE OF SECOND LUMBAR VERTEBRA, INIT FOR CLOS FX Status: Acute Current Visit: No Qualifiers: Encounter type: initial encounter Fracture type: closed (5) Hypokalemia SNOMED Code(s): 54835734 Code(s): E87.6 - HYPOKALEMIA Status: Acute Current Visit: Yes - Problem List Review Problem List Initiated/Reviewed/Updated: Yes - My Orders Last 24 Hours: My Active Orders 10/13/20 07:19 Intake and Output Strict [RC] Q12H 10/13/20 07:30 Levothyroxine [Synthroid] 50 mcg PO ACBREAKFAST - Plan Plan:: Assessment and Plan: 1. Altered mental status: - Mentation continues to improve. - MRI brain showed no acute infarction. There was [id number] chronic microvascular ischemic changes and diffuse cerebral volume loss. Will continue zyprexa 5mg qd. Recommend outpatient [id number]. - Family reported history of alcohol use, will continue thiamine supplement. - Tramadol held on admission. - UA did not show signs of infection. - CT head showed no acute findings. 2. Ambulatory dysfunction: - PT consulted. 3. Fracture of L2 vertebrae: - PT consulted. Continue Tylenol prn and Toradol prn pain. 4. Hypothyroidism: - Continue levothyroxine 50 mcg qd. 5. DVT prophylaxis: - Heparin 5, 000 units subcut q8h. 6. Disposition: - Family seeking NH placement.
[2020-10-14] MEDS: Levothyroxine 50 MCG Tab PO SCH (09:02)
[2020-10-14] MEDS: Folic Acid 50 MG/10 ML MDV SUBCUT SCH (09:05)
[2020-10-14] MEDS: Thiamine 100 MG in Sodium Chloride 0.9% 100 ML IV SCH (09:21)
[2020-10-14] MEDS: Ketorolac 15 MG/ML SDV IVPUSH PRN (17:22)
[2020-10-14] MEDS: Pantoprazole 40 MG in Sodium Chloride 0.9% 10 ML IVPUSH SCH (20:30)
[2020-10-14] MEDS: OLANZapine 5 MG Tab PO SCH (20:48)
[2020-10-15] MEDS: Heparin Sodium 5,000 Units/ML Vial SUBCUT SCH ×3 (04:59→20:07)
[2020-10-15 06:32] LABS: BLOOD UREA NITROGEN,BUN 26 mg/dL (7.0-18.0); CARBON DIOXIDE,CO2 26.8 mmol/L (21.0-32.0); CHLORIDE,CL 103 mmol/L (98-107); GLUCOSE RANDOM 93 mg/dL (74-106); POTASSIUM,K 3.9 mmol/L (3.5-5.1); SODIUM,NA 139 mmol/L (136-145)
[2020-10-15] MEDS: Levothyroxine 50 MCG Tab PO SCH (07:26)
[2020-10-15] MEDS: Folic Acid 50 MG/10 ML MDV SUBCUT SCH (08:15)
[2020-10-15] MEDS: Thiamine 100 MG in Sodium Chloride 0.9% 100 ML IV SCH (09:03)
--- NOTE | 2020-10-15 11:31 | PCM.PN ---
- General Info Date of Service: 10/15/20 - Patient Data Vitals - Most Recent: Last Vital Signs Temp 36.4 C 10/15/20 07:18 Pulse 67 10/15/20 07:18 Resp 17 10/15/20 07:18 BP 118/76 10/15/20 07:18 Pulse Ox 92 L 10/15/20 07:18 Weight - Most Recent: 41.957 kg I&O - Last 24 Hours: Intake & Output 10/14/20 10/15/20 10/15/20 22:59 06:59 14:59 Intake Total 340 340 100 Output Total 225 200 Balance 115 140 100 Lab Results Last 24 Hours: Laboratory Results - last 24 hr 10/15/20 10/15/20 Range/Units 05:38 05:38 WBC 5.42 (4.0-11.0) K/uL RBC 4.03 L (4.30-5.90) M/uL Hgb 14.0 (12.0-16.0) g/dL Hct 42.3 (36.0-46.0) % MCV 105.0 H (80.0-98.0) fL MCH 34.7 H (27.0-32.0) pg MCHC 33.1 (31.0-37.0) g/dL RDW Std Deviation 58.0 (28.0-62.0) fl RDW Coeff of Saulo 15 (11.0-15.0) % Plt Count 238 (150-400) K/uL MPV 9.90 (7.40-12.00) fL Neut % (Auto) 63.0 (48.0-80.0) % Lymph % (Auto) 25.5 (16.0-40.0) % [place] % (Auto) 9.8 (0.0-15.0) % Eos % (Auto) 1.1 (0.0-7.0) % Baso % (Auto) 0.6 (0.0-1.5) % Neut # (Auto) 3.4 (1.4-5.7) K/uL Lymph # (Auto) 1.4 (0.6-2.4) K/uL [place] # (Auto) 0.5 (0.0-0.8) K/uL Eos # (Auto) 0.1 (0.0-0.7) K/uL Baso # (Auto) 0.0 (0.0-0.1) K/uL Nucleated RBC % 0.0 /100WBC Nucleated RBCs # 0 K/uL Sodium 139 (136-145) mmol/L Potassium 3.9 (3.5-5.1) mmol/L Chloride 103 (98-107) mmol/L Carbon Dioxide 26.8 (21.0-32.0) mmol/L BUN 26 H (7.0-18.0) mg/dL Creatinine 1.0 (0.6-1.0) mg/dL Est Cr Clr Drug Dosing TNP Estimated GFR (MDRD) 52.8 ml/min Glucose 93 (74-106) mg/dL Calcium 8.1 L (8.5-10.1) mg/dL Total Bilirubin 0.3 (0.2-1.0) mg/dL AST 15 (15-37) IU/L ALT 23 (14-63) IU/L Alkaline Phosphatase 107 (46-116) U/L Total Protein 5.8 L (6.4-8.2) g/dL Albumin 2.5 L (3.4-5.0) g/dL Globulin 3.3 (2.6-4.0) g/dL Albumin/Globulin Ratio 0.8 L (0.9-1.6) Med Orders - Current: Current Medications Acetaminophen (Tylenol) 650 mg PO Q4H PRN PRN Reason: Pain (Mild 1-3)/fever Last Admin: 10/13/20 20:14 Dose: 650 mg Documented by: Folic Acid (Folic Acid) 1 mg SUBCUT DAILY [facility] Last Admin: 10/15/20 08:15 Dose: 1 mg Documented by: Heparin Sodium (Porcine) (Heparin Sodium) 5,000 units SUBCUT Q8H [facility] Last Admin: 10/15/20 04:59 Dose: 5,000 units Documented by: Pantoprazole Sodium 40 mg/ (Sodium Chloride) 10 mls @ 300 mls/hr IVPUSH DAILY@2100 [facility] Last Admin: 10/14/20 20:30 Dose: 300 mls/hr Documented by: Thiamine HCl 100 mg/ Sodium (Chloride) 101 mls @ 202 mls/hr IV DAILY [facility] Last Admin: 10/15/20 09:03 Dose: 202 mls/hr Documented by: Ketorolac Tromethamine (Toradol) 15 mg IVPUSH Q6H PRN PRN Reason: Pain Stop: 10/15/20 17:57 Last Admin: 10/14/20 17:22 Dose: 15 mg Documented by: Levothyroxine Sodium (Synthroid) 50 mcg PO ACBREAKFAST [facility] Last Admin: 10/15/20 07:26 Dose: 50 mcg Documented by: Melatonin (Melatonin) 3 mg PO BEDTIME PRN PRN Reason: Insomnia Last Admin: 10/11/20 20:28 Dose: 3 mg Documented by: Olanzapine (Zyprexa) 5 mg PO BEDTIME [facility] Last Admin: 10/14/20 20:48 Dose: 5 mg Documented by: Ondansetron HCl (Zofran) 4 mg IVPUSH Q4H PRN PRN Reason: Nausea Polyethylene Glycol (Miralax) 17 gm PO DAILY PRN PRN Reason: Constipation Last Admin: 10/12/20 19:10 Dose: 17 gm Documented by: Discontinued Medications Diphenhydramine HCl (Benadryl) 25 mg PO ONCALL ONE Stop: 10/12/20 12:47 Last Admin: 10/12/20 15:34 Dose: Not Given Documented by: Gadobenate Dimeglumine (Multihance) 20 ml IVPUSH ONETIME [facility] Stop: 10/12/20 12:31 Last Admin: 10/12/20 13:30 Dose: 8 ml Documented by: Haloperidol (Haldol) 2.5 mg PO ONCALL ONE Stop: 10/12/20 12:47 Last Admin: 10/12/20 15:34 Dose: Not Given Documented by: Heparin Sodium (Porcine) (Heparin Sodium) 5,000 units SUBCUT Q8H [facility] Last Admin: 10/11/20 00:49 Dose: Not Given Documented by: Lactated Ringer's (Ringers, Lactated) 1,000 mls @ 75 mls/hr IV ASDIRECTED [facility] Stop: 10/11/20 08:19 Last Admin: 10/10/20 21:34 Dose: 75 mls/hr Documented by: Pantoprazole Sodium 40 mg/ (Sodium Chloride) 10 mls @ 300 mls/hr IVPUSH DAILY [facility] Last Admin: 10/11/20 00:49 Dose: Not Given Documented by: Olanzapine (Zyprexa) 5 mg PO ONETIME ONE Stop: 10/11/20 19:03 Last Admin: 10/11/20 20:28 Dose: 5 mg Documented by: Potassium Chloride (Klor-Con M20) 40 meq PO ONETIME ONE Stop: 10/11/20 07:33 Last Admin: 10/11/20 08:05 Dose: 40 meq Documented by: - Exam General: No Acute Distress Neck: Supple Lungs: Clear to Auscultation, Normal Respiratory Effort Cardiovascular: Regular Rate, Regular Rhythm GI/Abdominal Exam: Soft, Non-Tender, No Distention Extremities: Non-Tender, No Pedal Edema Skin: Warm, Dry, Intact Neurological: No New Focal Deficit - Patient Data Lab Results Last 24 hrs: Laboratory Results - last 24 hr 10/15/20 10/15/20 Range/Units 05:38 05:38 WBC 5.42 (4.0-11.0) K/uL RBC 4.03 L (4.30-5.90) M/uL Hgb 14.0 (12.0-16.0) g/dL Hct 42.3 (36.0-46.0) % MCV 105.0 H (80.0-98.0) fL MCH 34.7 H (27.0-32.0) pg MCHC 33.1 (31.0-37.0) g/dL RDW Std Deviation 58.0 (28.0-62.0) fl RDW Coeff of Saulo 15 (11.0-15.0) % Plt Count 238 (150-400) K/uL MPV 9.90 (7.40-12.00) fL Neut % (Auto) 63.0 (48.0-80.0) % Lymph % (Auto) 25.5 (16.0-40.0) % [place] % (Auto) 9.8 (0.0-15.0) % Eos % (Auto) 1.1 (0.0-7.0) % Baso % (Auto) 0.6 (0.0-1.5) % Neut # (Auto) 3.4 (1.4-5.7) K/uL Lymph # (Auto) 1.4 (0.6-2.4) K/uL [place] # (Auto) 0.5 (0.0-0.8) K/uL Eos # (Auto) 0.1 (0.0-0.7) K/uL Baso # (Auto) 0.0 (0.0-0.1) K/uL Nucleated RBC % 0.0 /100WBC Nucleated RBCs # 0 K/uL Sodium 139 (136-145) mmol/L Potassium 3.9 (3.5-5.1) mmol/L Chloride 103 (98-107) mmol/L Carbon Dioxide 26.8 (21.0-32.0) mmol/L BUN 26 H (7.0-18.0) mg/dL Creatinine 1.0 (0.6-1.0) mg/dL Est Cr Clr Drug Dosing TNP Estimated GFR (MDRD) 52.8 ml/min Glucose 93 (74-106) mg/dL Calcium 8.1 L (8.5-10.1) mg/dL Total Bilirubin 0.3 (0.2-1.0) mg/dL AST 15 (15-37) IU/L ALT 23 (14-63) IU/L Alkaline Phosphatase 107 (46-116) U/L Total Protein 5.8 L (6.4-8.2) g/dL Albumin 2.5 L (3.4-5.0) g/dL Globulin 3.3 (2.6-4.0) g/dL Albumin/Globulin Ratio 0.8 L (0.9-1.6) Result Diagrams: 10/15/20 05:38 10/15/20 05:38 Sepsis Event Note - Evaluation Sepsis Screening Result: No Definite Risk - Focused Exam Vital Signs: Vital Signs Temp Pulse Resp BP BP Pulse Ox 10/15/20 07:18 36.4 C 67 17 118/76 92 L 10/15/20 03:56 36.4 C 63 16 122/64 92 L 10/14/20 23:51 37.1 C 68 16 107/50 L 92 L - Problem List Review Problem List Initiated/Reviewed/Updated: Yes - Plan Plan:: Assessment and Plan: 1. Altered mental status: likely due to tramadol use for L2 vertebrae fracture. Mentation has been improving. Disposition is pending group home placement.
[2020-10-15] MEDS: Pantoprazole 40 MG in Sodium Chloride 0.9% 10 ML IVPUSH SCH (20:07)
[2020-10-15] MEDS: Acetaminophen 325 MG Tab PO PRN (20:08)
[2020-10-15] MEDS: OLANZapine 5 MG Tab PO SCH (20:08)
[2020-10-15] MEDS: Melatonin 3 MG Tab PO PRN (20:08)
[2020-10-16] MEDS: Heparin Sodium 5,000 Units/ML Vial SUBCUT SCH ×3 (05:58→20:45)
[2020-10-16] MEDS: Levothyroxine 50 MCG Tab PO SCH (07:07)
--- NOTE | 2020-10-16 08:27 | PCM.PN ---
- General Info Date of Service: 10/16/20 Subjective Update: Patient alert and eating breakfast at bedside this morning. Responding to questions appropriately. Denies any pain. - Patient Data Vitals - Most Recent: Last Vital Signs Temp 36.8 C 10/16/20 05:20 Pulse 70 10/16/20 05:20 Resp 15 10/16/20 05:20 BP 126/54 L 10/16/20 05:20 Pulse Ox 96 10/16/20 05:20 Weight - Most Recent: 41.957 kg I&O - Last 24 Hours: Intake & Output 10/15/20 10/16/20 10/16/20 22:59 06:59 14:59 Intake Total 290 440 Output Total 320 1075 Balance -30 -635 Med Orders - Current: Current Medications Acetaminophen (Tylenol) 650 mg PO Q4H PRN PRN Reason: Pain (Mild 1-3)/fever Last Admin: 10/15/20 20:08 Dose: 650 mg Documented by: Folic Acid (Folic Acid) 1 mg SUBCUT DAILY [facility] Last Admin: 10/15/20 08:15 Dose: 1 mg Documented by: Heparin Sodium (Porcine) (Heparin Sodium) 5,000 units SUBCUT Q8H [facility] Last Admin: 10/16/20 05:58 Dose: 5,000 units Documented by: Pantoprazole Sodium 40 mg/ (Sodium Chloride) 10 mls @ 300 mls/hr IVPUSH DAILY@2100 [facility] Last Admin: 10/15/20 20:07 Dose: 300 mls/hr Documented by: Thiamine HCl 100 mg/ Sodium (Chloride) 101 mls @ 202 mls/hr IV DAILY [facility] Last Admin: 10/15/20 09:03 Dose: 202 mls/hr Documented by: Levothyroxine Sodium (Synthroid) 50 mcg PO ACBREAKFAST [facility] Last Admin: 10/16/20 07:07 Dose: 50 mcg Documented by: Melatonin (Melatonin) 3 mg PO BEDTIME PRN PRN Reason: Insomnia Last Admin: 10/15/20 20:08 Dose: 3 mg Documented by: Olanzapine (Zyprexa) 5 mg PO BEDTIME [facility] Last Admin: 10/15/20 20:08 Dose: 5 mg Documented by: Ondansetron HCl (Zofran) 4 mg IVPUSH Q4H PRN PRN Reason: Nausea Polyethylene Glycol (Miralax) 17 gm PO DAILY PRN PRN Reason: Constipation Last Admin: 10/12/20 19:10 Dose: 17 gm Documented by: Discontinued Medications Diphenhydramine HCl (Benadryl) 25 mg PO ONCALL ONE Stop: 10/12/20 12:47 Last Admin: 10/12/20 15:34 Dose: Not Given Documented by: Gadobenate Dimeglumine (Multihance) 20 ml IVPUSH ONETIME [facility] Stop: 10/12/20 12:31 Last Admin: 10/12/20 13:30 Dose: 8 ml Documented by: Haloperidol (Haldol) 2.5 mg PO ONCALL ONE Stop: 10/12/20 12:47 Last Admin: 10/12/20 15:34 Dose: Not Given Documented by: Heparin Sodium (Porcine) (Heparin Sodium) 5,000 units SUBCUT Q8H [facility] Last Admin: 10/11/20 00:49 Dose: Not Given Documented by: Lactated Ringer's (Ringers, Lactated) 1,000 mls @ 75 mls/hr IV ASDIRECTED [facility] Stop: 10/11/20 08:19 Last Admin: 10/10/20 21:34 Dose: 75 mls/hr Documented by: Pantoprazole Sodium 40 mg/ (Sodium Chloride) 10 mls @ 300 mls/hr IVPUSH DAILY [facility] Last Admin: 10/11/20 00:49 Dose: Not Given Documented by: Ketorolac Tromethamine (Toradol) 15 mg IVPUSH Q6H PRN PRN Reason: Pain Stop: 10/15/20 17:57 Last Admin: 10/14/20 17:22 Dose: 15 mg Documented by: Olanzapine (Zyprexa) 5 mg PO ONETIME ONE Stop: 10/11/20 19:03 Last Admin: 10/11/20 20:28 Dose: 5 mg Documented by: Potassium Chloride (Klor-Con M20) 40 meq PO ONETIME [facility] Stop: 10/11/20 07:33 Last Admin: 10/11/20 08:05 Dose: 40 meq Documented by: - Exam General: Alert, Oriented, Cooperative, No Acute Distress Lungs: Clear to Auscultation, Normal Respiratory Effort Cardiovascular: Regular Rate, Regular Rhythm GI/Abdominal Exam: Normal Bowel Sounds, Soft, Non-Tender, No Distention Extremities: Normal Inspection, No Pedal Edema - Patient Data Result Diagrams: 10/15/20 05:38 10/15/20 05:38 Sepsis Event Note - Evaluation Sepsis Screening Result: No Definite Risk - Focused Exam Vital Signs: Vital Signs Temp Pulse Resp BP BP Pulse Ox 10/16/20 05:20 36.8 C 70 15 126/54 L 96 10/15/20 23:39 36.7 C 64 15 141/60 H 93 L 10/15/20 21:22 147/59 H - Problem List & Annotations (1) AMS (altered mental status) SNOMED Code(s): 806592729 Code(s): R41.82 - ALTERED MENTAL STATUS, UNSPECIFIED Status: Acute Current Visit: Yes (2) Ambulatory dysfunction SNOMED Code(s): 706979582 Code(s): R26.2 - DIFFICULTY IN WALKING, NOT ELSEWHERE CLASSIFIED Status: Acute Current Visit: Yes (3) Hypothyroidism SNOMED Code(s): 47728644 Code(s): E03.9 - HYPOTHYROIDISM, UNSPECIFIED Status: Acute Current Visit: Yes (4) Fracture of second lumbar vertebra SNOMED Code(s): 753347150, 886388463 Code(s): S32.029A - UNSP FRACTURE OF SECOND LUMBAR VERTEBRA, INIT FOR CLOS FX Status: Acute Current Visit: No Qualifiers: Encounter type: initial encounter Fracture type: closed (5) Hypokalemia SNOMED Code(s): 66795231 Code(s): E87.6 - HYPOKALEMIA Status: Acute Current Visit: Yes - Problem List Review Problem List Initiated/Reviewed/Updated: Yes - My Orders Last 24 Hours: My Active Orders 10/15/20 12:00 Vital Signs [RC] Q4H - Plan Plan:: Assessment and Plan: 1. Altered mental status: - Patient's mentation continues to improve and was responding to questions appropriately this morning. - AMS is likely secondary tramadol use for L2 vertebrae fracture. Continue working with PT. 2. DVT prophylaxis: - Heparin 5,000 units subcut q8h. 3. Disposition: pending long-term placement.
[2020-10-16] MEDS: Folic Acid 50 MG/10 ML MDV SUBCUT SCH (08:57)
[2020-10-16] MEDS: Thiamine 100 MG in Sodium Chloride 0.9% 100 ML IV SCH (09:50)
[2020-10-16] MEDS: Pantoprazole 40 MG in Sodium Chloride 0.9% 10 ML IVPUSH SCH (20:43)
[2020-10-16] MEDS: OLANZapine 5 MG Tab PO SCH (20:43)
[2020-10-17] MEDS: Heparin Sodium 5,000 Units/ML Vial SUBCUT SCH (04:41)
[2020-10-17] MEDS: Levothyroxine 50 MCG Tab PO SCH (06:52)
[2020-10-17] MEDS: Folic Acid 50 MG/10 ML MDV SUBCUT SCH (08:26)
[2020-10-17] MEDS: Thiamine 100 MG in Sodium Chloride 0.9% 100 ML IV SCH (09:19)
--- NOTE | 2020-10-17 09:41 | PCM.DCSUM1 ---
<Lanre Gatica - Last Filed: 10/17/20 09:56> Discharge Summary - Hospital Course Free Text/Narrative:: 85-year-old female admitted for altered mental status and ambulatory dysfunction. She has a past medical history of hypothyroidism. Patient was initially seen in the ER on 10/06/2020 after sustaining a mechanical fall at home after tripping on a rug. CT scan showed acute fracture of L2 and was discharged from the ER on tramadol. Family then noticed that patient started appearing more confused than normal, appeared to be hallucinating and had difficulty walking. Per family, over the past couple of months patient may have had mild cognitive decline and memory impairment, however, has noticed a more significant decline over the past 2 days prior to admission. On admission, CT head was unremarkable, hemoglobin 17.1, TSH 0.26 and UA did not show any infection. Her tramadol was he ld on admission. Her levothyroxine dose was reduced to 50 mcg qd. MRI brain showed [id number] chronic microvascular ischemic changes and diffuse cerebral volume loss. She was started on thiamine, folic acid and zyprexa 5 mg qd. Over the course of her hospitalization, patient's mentation improved significantly. PT was consulted and patient requires inpatient rehab. Outpatient neurology referral was made. Zyprexa will be continued for now and decision to discontinue can be made by PCP or neurology. COVID-19 test negative. Patient discharged to [facility] in stable condition. - Discharge Data Discharge Date: 10/17/20 Discharge Disposition: DC/Tfer to [facility] 03 Condition: Stable - Referral to Home Health Primary Care Physician: Pawel Sanchez MD - Discharge Diagnosis/Problem(s) (1) AMS (altered mental status) SNOMED Code(s): 365604403 ICD Code: R41.82 - ALTERED MENTAL STATUS, UNSPECIFIED Status: Acute (2) Ambulatory dysfunction SNOMED Code(s): 195978210 ICD Code: R26.2 - DIFFICULTY IN WALKING, NOT ELSEWHERE CLASSIFIED Status: Acute (3) Hypothyroidism SNOMED Code(s): 69643804 ICD Code: E03.9 - HYPOTHYROIDISM, UNSPECIFIED Status: Acute (4) Fracture of second lumbar vertebra SNOMED Code(s): 251040541, 153854902 ICD Code: S32.029A - UNSP FRACTURE OF SECOND LUMBAR VERTEBRA, INIT FOR CLOS FX Status: Acute Qualifiers: Encounter type: initial encounter Fracture type: closed (5) Hypokalemia SNOMED Code(s): 90294548 ICD Code: E87.6 - HYPOKALEMIA Status: Acute - Patient Summary/Data Consults: Consultations 10/10/20 17:54 PT Evaluation and Treatment [CONS] Routine 10/10/20 21:01 Consult to Wound Care Services [CONS] Routine 10/12/20 11:13 Consult to Speech Language Pathology [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] [CONS] Routine - Patient Instructions Diet: Regular Diet as Tolerated Activity: As Tolerated Notify Provider of: Fever, Increased Pain, Swelling and Redness, Drainage, Nausea and/or Vomiting Other/Special Instructions: PT/OT/ST - Discharge Plan *PRESCRIPTION DRUG MONITORING PROGRAM REVIEWED*: Not Applicable *COPY OF PRESCRIPTION DRUG MONITORING REPORT IN PATIENT NELY: Not Applicable Prescriptions/Med Rec: Folic Acid 1 mg PO BEDTIME 30 Days #30 tab polyethylene glycoL 3350 [MiraLAX] 17 gm PO DAILY PRN 30 Days #30 packet PRN Reason: Constipation OLANZapine [Olanzapine Odt] 5 mg PO BEDTIME 30 Days #30 tab.rapdis Levothyroxine [Synthroid] 50 mcg PO ACBREAKFAST 30 Days #30 tab Acetaminophen [Tylenol Arthritis Pain] 650 mg PO Q4H PRN 30 Days #30 tab.er PRN Reason: Pain Thiamine [Vitamin B-1] 100 mg PO DAILY 30 Days #30 tablet Home Medications: Home Meds Acetaminophen [Tylenol Arthritis Pain] 650 mg PO Q4H PRN 30 Days #30 tab.er 10/17/20 [Rx] Folic Acid 1 mg PO BEDTIME 30 Days #30 tab 10/17/20 [Rx] Levothyroxine [Synthroid] 50 mcg PO ACBREAKFAST 30 Days #30 tab 10/17/20 [Rx] OLANZapine [Olanzapine Odt] 5 mg PO BEDTIME 30 Days #30 tab.rapdis 10/17/20 [Rx] Thiamine [Vitamin B-1] 100 mg PO DAILY 30 Days #30 tablet 10/17/20 [Rx] polyethylene glycoL 3350 [MiraLAX] 17 gm PO DAILY PRN 30 Days #30 packet 10/17/20 [Rx] Oxygen Therapy Mode: Room Air Patient Handouts: Understanding Your Risk for Falls, Failure to Thrive, Adult, [id number] Referrals: Pawel Sanchez MD [Primary Care Provider] - 10/18/20 10:00 am - Discharge Summary/Plan Comment DC Time >30 min.: No - Patient Data Vitals - Most Recent: Last Vital Signs Temp 36.8 C 10/17/20 04:31 Pulse 61 10/17/20 04:31 Resp 17 10/17/20 04:31 BP 136/64 10/17/20 04:31 Pulse Ox 91 L 10/17/20 04:31 Weight - Most Recent: 41.957 kg I&O - Last 24 hours: Intake & Output 10/16/20 10/17/20 10/17/20 22:59 06:59 14:59 Intake Total 250 220 Output Total 550 200 Balance -300 20 Lab Results - Last 24 hrs: Laboratory Results - last 24 hr 10/17/20 Range/Units 08:40 SARS-CoV-2 RNA (BRITTANY) NEGATIVE (NEGATIVE) Med Orders - Current: Current Medications Acetaminophen (Tylenol) 650 mg PO Q4H PRN PRN Reason: Pain (Mild 1-3)/fever Last Admin: 10/15/20 20:08 Dose: 650 mg Documented by: Folic Acid (Folic Acid) 1 mg SUBCUT DAILY [facility] Last Admin: 10/17/20 08:26 Dose: 1 mg Documented by: Heparin Sodium (Porcine) (Heparin Sodium) 5,000 units SUBCUT Q8H [facility] Last Admin: 10/17/20 04:41 Dose: 5,000 units Documented by: Pantoprazole Sodium 40 mg/ (Sodium Chloride) 10 mls @ 300 mls/hr IVPUSH DAILY@2100 [facility] Last Admin: 10/16/20 20:43 Dose: 300 mls/hr Documented by: Thiamine HCl 100 mg/ Sodium (Chloride) 101 mls @ 202 mls/hr IV DAILY [facility] Last Admin: 10/17/20 09:19 Dose: 202 mls/hr Documented by: Levothyroxine Sodium (Synthroid) 50 mcg PO ACBREAKFAST [facility] Last Admin: 10/17/20 06:52 Dose: 50 mcg Documented by: Melatonin (Melatonin) 3 mg PO BEDTIME PRN PRN Reason: Insomnia Last Admin: 10/15/20 20:08 Dose: 3 mg Documented by: Olanzapine (Zyprexa) 5 mg PO BEDTIME [facility] Last Admin: 10/16/20 20:43 Dose: 5 mg Documented by: Ondansetron HCl (Zofran) 4 mg IVPUSH Q4H PRN PRN Reason: Nausea Polyethylene Glycol (Miralax) 17 gm PO DAILY PRN PRN Reason: Constipation Last Admin: 10/12/20 19:10 Dose: 17 gm Documented by: Discontinued Medications Diphenhydramine HCl (Benadryl) 25 mg PO ONCALL ONE Stop: 10/12/20 12:47 Last Admin: 10/12/20 15:34 Dose: Not Given Documented by: Gadobenate Dimeglumine (Multihance) 20 ml IVPUSH ONETIME STA Stop: 10/12/20 12:31 Last Admin: 10/12/20 13:30 Dose: 8 ml Documented by: Haloperidol (Haldol) 2.5 mg PO ONCALL ONE Stop: 10/12/20 12:47 Last Admin: 10/12/20 15:34 Dose: Not Given Documented by: Heparin Sodium (Porcine) (Heparin Sodium) 5,000 units SUBCUT Q8H [facility] Last Admin: 10/11/20 00:49 Dose: Not Given Documented by: Lactated Ringer's (Ringers, Lactated) 1,000 mls @ 75 mls/hr IV ASDIRECTED [facility] Stop: 10/11/20 08:19 Last Admin: 10/10/20 21:34 Dose: 75 mls/hr Documented by: Pantoprazole Sodium 40 mg/ (Sodium Chloride) 10 mls @ 300 mls/hr IVPUSH DAILY [facility] Last Admin: 10/11/20 00:49 Dose: Not Given Documented by: Ketorolac Tromethamine (Toradol) 15 mg IVPUSH Q6H PRN PRN Reason: Pain Stop: 10/15/20 17:57 Last Admin: 10/14/20 17:22 Dose: 15 mg Documented by: Olanzapine (Zyprexa) 5 mg PO ONETIME ONE Stop: 10/11/20 19:03 Last Admin: 10/11/20 20:28 Dose: 5 mg Documented by: Potassium Chloride (Klor-Con M20) 40 meq PO ONETIME ONE Stop: 10/11/20 07:33 Last Admin: 10/11/20 08:05 Dose: 40 meq Documented by: Ck Cramer - Last Filed: 10/18/20 21:30> Discharge Summary - Referral to Home Health Primary Care Physician: Pawel Sanchez MD - Patient Summary/Data Consults: Consultations 10/10/20 17:54 PT Evaluation and Treatment [CONS] Routine 10/10/20 21:01 Consult to Wound Care Services [CONS] Routine 10/12/20 11:13 Consult to 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 Language Pathology [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] [CONS] Routine - Patient Data Vitals - Most Recent: Last Vital Signs Temp 36.5 C 10/17/20 09:00 Pulse 64 10/17/20 09:00 Resp 16 10/17/20 09:00 BP 125/60 10/17/20 09:00 Pulse Ox 91 L 10/17/20 09:00 Med Orders - Current: Current Medications Discontinued Medications Acetaminophen (Tylenol) 650 mg PO Q4H PRN PRN Reason: Pain (Mild 1-3)/fever Last Admin: 10/15/20 20:08 Dose: 650 mg Documented by: Diphenhydramine HCl (Benadryl) 25 mg PO ONCALL ONE Stop: 10/12/20 12:47 Last Admin: 10/12/20 15:34 Dose: Not Given Documented by: Folic Acid (Folic Acid) 1 mg SUBCUT DAILY [facility] Last Admin: 10/17/20 08:26 Dose: 1 mg Documented by: Gadobenate Dimeglumine (Multihance) 20 ml IVPUSH ONETIME STA Stop: 10/12/20 12:31 Last Admin: 10/12/20 13:30 Dose: 8 ml Documented by: Haloperidol (Haldol) 2.5 mg PO ONCALL ONE Stop: 10/12/20 12:47 Last Admin: 10/12/20 15:34 Dose: Not Given Documented by: Heparin Sodium (Porcine) (Heparin Sodium) 5,000 units SUBCUT Q8H [facility] Last Admin: 10/11/20 00:49 Dose: Not Given Documented by: Heparin Sodium (Porcine) (Heparin Sodium) 5,000 units SUBCUT Q8H [facility] Last Admin: 10/17/20 04:41 Dose: 5,000 units Documented by: Lactated Ringer's (Ringers, Lactated) 1,000 mls @ 75 mls/hr IV ASDIRECTED [facility] Stop: 10/11/20 08:19 Last Admin: 10/10/20 21:34 Dose: 75 mls/hr Documented by: Pantoprazole Sodium 40 mg/ (Sodium Chloride) 10 mls @ 300 mls/hr IVPUSH DAILY [facility] Last Admin: 10/11/20 00:49 Dose: Not Given Documented by: Pantoprazole Sodium 40 mg/ (Sodium Chloride) 10 mls @ 300 mls/hr IVPUSH DAILY@2100 [facility] Last Admin: 10/16/20 20:43 Dose: 300 mls/hr Documented by: Thiamine HCl 100 mg/ Sodium (Chloride) 101 mls @ 202 mls/hr IV DAILY [facility] Last Admin: 10/17/20 09:19 Dose: 202 mls/hr Documented by: Ketorolac Tromethamine (Toradol) 15 mg IVPUSH Q6H PRN PRN Reason: Pain Stop: 10/15/20 17:57 Last Admin: 10/14/20 17:22 Dose: 15 mg Documented by: Levothyroxine Sodium (Synthroid) 50 mcg PO ACBREAKFAST [facility] Last Admin: 10/17/20 06:52 Dose: 50 mcg Documented by: Melatonin (Melatonin) 3 mg PO BEDTIME PRN PRN Reason: Insomnia Last Admin: 10/15/20 20:08 Dose: 3 mg Documented by: Olanzapine (Zyprexa) 5 mg PO ONETIME ONE Stop: 10/11/20 19:03 Last Admin: 10/11/20 20:28 Dose: 5 mg Documented by: Olanzapine (Zyprexa) 5 mg PO BEDTIME [facility] Last Admin: 10/16/20 20:43 Dose: 5 mg Documented by: Ondansetron HCl (Zofran) 4 mg IVPUSH Q4H PRN PRN Reason: Nausea Polyethylene Glycol (Miralax) 17 gm PO DAILY PRN PRN Reason: Constipation Last Admin: 10/12/20 19:10 Dose: 17 gm Documented by: Potassium Chloride (Klor-Con M20) 40 meq PO ONETIME ONE Stop: 10/11/20 07:33 Last Admin: 10/11/20 08:05 Dose: 40 meq Documented by: - Free Text/Narrative Note: I have seen and evaluated the patient with the resident. I discussed findings and treatment plan with the resident. I agree with the assessment and plan outlined in the resident's note.
[2020-10-17 09:48] VITALS: BP 125/60; PULSE 64
== END 2020-10-17 11:30 | DRG 948 ==
LOC: MW.ED 13:54 → MW.MS 16:56
PROVIDERS: ADMIT Student in an Organized Health Care Education/Training Program; ATTEND Student in an Organized Health Care Education/Training Program
DX: R41.82 Altered mental status, unspecified (principal); S32.029A Unspecified fracture of second lumbar vertebra, initial encounter for closed fracture; G93.40 Encephalopathy, unspecified; Z91.81 History of falling; S32.10XD Unspecified fracture of sacrum, subsequent encounter for fracture with routine healing; W19.XXXD Unspecified fall, subsequent encounter; E03.9 Hypothyroidism, unspecified; H54.7 Unspecified visual loss; E87.6 Hypokalemia; R26.2 Difficulty in walking, not elsewhere classified; Z20.822 Contact with and (suspected) exposure to COVID-19; Z79.899 Other long term (current) drug therapy; Z79.890 Hormone replacement therapy
CPT/HCPCS: 0240U; 36415; 70450; 70553; 71045; 80053; 81001; 83690; 83735; 84100; 84439; 84443; 85025; 92610; 97110; 97116; 97162; 97530; 99285; 99222; 99231; 99232; 99238; 99283; A9270-GY; A9577; C9113; J1644; J1885; J3411; J7120; U0002

== ENCOUNTER 2024-05-08 14:33 | Emergency (ER) | payer MEDICARE, OTHER, MEDICAID ==
[2024-05-08] MEDS: Sodium Chloride 0.9% 1,000 ML IV ONE (15:20)
[2024-05-08] MEDS: Lidocaine 4% 1 each Patch TOP PRN (15:21)
[2024-05-08] MEDS: Acetaminophen 500 MG Tab PO ONE (15:22)
[2024-05-08 15:23] LABS: BASOPHILS ABSOLUTE AUTO 0.08 K/uL (0.00-0.20); BASOPHILS PERCENT AUTO 0.8 % (0.0-1.0); EOSINOPHILS ABSOLUTE AUTO 0.16 K/uL (0.00-0.45); EOSINOPHILS PERCENT AUTO 1.6 % (0.0-6.0); HEMATOCRIT 44.8 % (37.0-47.0); HEMOGLOBIN 14.9 g/dL (12.0-16.0); IMMATURE GRAN ABSOLUTE AUTO 0.18 K/uL (0.00-0.05); IMMATURE GRAN PERCENT AUTO 1.8 % (0.0-0.4); LYMPHOCYTES ABSOLUTE AUTO 1.65 K/uL (1.00-4.80); LYMPHOCYTES PERCENT AUTO 16.9 % (24.0-44.0); MEAN CORPUSCULAR HEMOGLOBIN 31.4 pg (28.0-32.0); MEAN CORPUSCULAR HGB CONC 33.3 g/dL (32.0-36.0); MEAN CORPUSCULAR VOLUME 94.3 fL (83.0-99.0); MEAN PLATELET VOLUME 8.6 fL (9.4-12.3); MONOCYTES ABSOLUTE AUTO 0.58 K/uL (0.00-0.80); MONOCYTES PERCENT AUTO 5.9 % (0.0-8.0); NEUTROPHILS ABSOLUTE AUTO 7.13 K/uL (1.80-7.70); RED BLOOD CELL COUNT 4.75 M/uL (4.10-5.30); WHITE BLOOD CELL COUNT,WBC 9.78 K/uL (3.9-11.3)
[2024-05-08 15:42] LABS: PLATELET COUNT,PLT 276 K/uL (150-400)
[2024-05-08 16:16] LABS: A/G RATIO 0.8 (0.9-1.6); ALANINE AMINOTRANSFERASE,ALT 10 IU/L (14-63); ALKALINE PHOSPHATASE 87 U/L (46-116); ASPARTATE AMNIOTRANSFERASE,AST 12 IU/L (15-37); BILIRUBIN TOTAL 0.3 mg/dL (0.2-1.0); BLOOD UREA NITROGEN,BUN 17 mg/dL (7.0-18.0); CALCIUM 8.7 mg/dL (8.5-10.1); CARBON DIOXIDE,CO2 31.8 mmol/L (21.0-32.0); CHLORIDE,CL 101 mmol/L (98-107); ESTIMATED GFR 55 mL/min (>60); GLUCOSE RANDOM 108 mg/dL (74-106); LIPASE 214 U/L (16-77); POTASSIUM,K 4.2 mmol/L (3.5-5.1); SODIUM,NA 137 mmol/L (136-145)
[2024-05-08 16:16] LABS: CORONAVIRUS COVID-19 NAA NEGATIVE (NEGATIVE); INFLUENZA A NAA NEGATIVE (NEGATIVE); INFLUENZA B NAA NEGATIVE (NEGATIVE); RESPIRATORY SYNCYTIAL VIR NAA NEGATIVE (NEGATIVE)
[2024-05-08 17:28] LABS: APPEARANCE,URINE CLEAR; BILIRUBIN,URINE NEGATIVE (NEGATIVE); COLOR,URINE YELLOW; GLUCOSE,URINE NEGATIVE (NEGATIVE); KETONES,URINE NEGATIVE (NEGATIVE); LEUKOCYTE ESTERASE,URINE NEGATIVE (NEGATIVE); NITRITE,URINE NEGATIVE (NEGATIVE); OCCULT BLOOD,URINE NEGATIVE (NEGATIVE); PROTEIN,URINE NEGATIVE (NEGATIVE)
[2024-05-08] MEDS: Iopamidol 755 MG/ML 500 ML Multipack Bottle IVPUSH STA (17:32)
[2024-05-08 19:47] VITALS: BP 126/54; PULSE 68
== END 2024-05-08 19:46 | disposition home or self-care (01) ==
LOC: MW.ED 14:33
DX: M25.552 Pain in left hip (principal); R10.32 Left lower quadrant pain; R74.8 Abnormal levels of other serum enzymes; E03.9 Hypothyroidism, unspecified; Z79.899 Other long term (current) drug therapy; Z75.8 Other problems related to medical facilities and other health care
CPT/HCPCS: 0241U; 36415; 71045; 74177; 80053; 81003; 83690; 83735; 85025; 96360; 96361; 99284; A9270; J7030; Q9967

== ENCOUNTER 2025-04-27 13:34 | Emergency (ER) | payer MEDICARE, OTHER, MEDICAID ==
[2025-04-27 13:49] VITALS: BP 133/59
[2025-04-27 14:30] LABS: BASOPHILS ABSOLUTE AUTO 0.04 K/uL (0.00-0.20); BASOPHILS PERCENT AUTO 0.6 % (0.0-1.0); EOSINOPHILS ABSOLUTE AUTO 0.05 K/uL (0.00-0.45); EOSINOPHILS PERCENT AUTO 0.7 % (0.0-6.0); IMMATURE GRAN ABSOLUTE AUTO 0.02 K/uL (0.00-0.05); IMMATURE GRAN PERCENT AUTO 0.3 % (0.0-0.4); LYMPHOCYTES ABSOLUTE AUTO 1.24 K/uL (1.00-4.80); LYMPHOCYTES PERCENT AUTO 18.3 % (24.0-44.0); MEAN PLATELET VOLUME 8.7 fL (9.4-12.3); MONOCYTES ABSOLUTE AUTO 0.63 K/uL (0.00-0.80); MONOCYTES PERCENT AUTO 9.3 % (0.0-8.0); NEUTROPHILS ABSOLUTE AUTO 4.78 K/uL (1.80-7.70); NEUTROPHILS PERCENT AUTO 70.8 % (41.0-71.0); NRBC ABSOLUTE 0.00 K/uL (0.00-0.02); NRBC PERCENT 0.0 /100WBC (0.0-0.2); PLATELET COUNT,PLT 240 K/uL (150-400); RED BLOOD CELL COUNT 4.48 M/uL (4.10-5.30); WHITE BLOOD CELL COUNT,WBC 6.76 K/uL (3.9-11.3)
[2025-04-27 15:09] LABS: A/G RATIO 0.9 (0.9-1.6); ALANINE AMINOTRANSFERASE,ALT 8 IU/L (14-63); ASPARTATE AMNIOTRANSFERASE,AST 14 IU/L (15-37); BILIRUBIN TOTAL 0.3 mg/dL (0.2-1.0); BLOOD UREA NITROGEN,BUN 18 mg/dL (7.0-18.0); CARBON DIOXIDE,CO2 33.4 mmol/L (21.0-32.0); CHLORIDE,CL 106 mmol/L (98-107); CREATININE 1.0 mg/dL (0.6-1.0); GLUCOSE RANDOM 102 mg/dL (74-106); POTASSIUM,K 3.9 mmol/L (3.5-5.1); PROTEIN TOTAL,TP 6.8 g/dL (6.4-8.2); SODIUM,NA 144 mmol/L (136-145)
[2025-04-27 15:12] LABS: ESTIMATED GFR 54 mL/min (>60)
[2025-04-27 15:52] VITALS: PULSE 71
== END 2025-04-27 15:50 | disposition home or self-care (01) ==
LOC: MW.ED 13:34
DX: S20.212A Contusion of left front wall of thorax, initial encounter (principal); R91.8 Other nonspecific abnormal finding of lung field; E03.9 Hypothyroidism, unspecified; Z79.890 Hormone replacement therapy; Z79.899 Other long term (current) drug therapy; Z75.3 Unavailability and inaccessibility of health-care facilities
CPT/HCPCS: 36415; 70450; 70450-26; 71250; 71250-26; 72125; 72125-26; 80053; 84484; 85025; 93005; 93010; 99284